=== PATIENT | male | born 1985 | race Caucasian/White ===

== ENCOUNTER 2024-08-10 17:52 | Emergency (ER) | payer OTHER, SELFPAY ==
[2024-08-10 17:52] VITALS: BMI 35.9
[2024-08-10 18:11] VITALS: BP 121/84; PULSE 86; RESP 16; TEMP 37.3; O2SAT 96
--- NOTE | 2024-08-10 18:23 | XR_ITS ---
Examination: Tibia-Fibula, left , 2 views Technique: Tibia-fibula AP lateral 2 views Date and time of exam: 1827 hrs. Indications: Injury to the lower leg 5 days ago, lower leg pain Findings: Orthopedic screws proximal tibia No acute fracture Impression: No acute fracture No cortical bone destruction
--- NOTE | 2024-08-10 18:23 | XR_ITS ---
Examination: Duplex scan of the lower extremity, unilateral left complete Date and time of exam: August 10, 2024 at 1847 hrs. Indications: Left leg pain beginning 5 days ago after falling with injury to the lower leg Technique: Duplex scan of the extremity veins using B-mode/grayscale imaging and Doppler spectral analysis and color flow Attention is directed to internal echogenicity, compression and augmentation involving these veins, color flow assessment, spectral analysis Findings: Positive for acute thrombus, occlusive in the left anterior tibial vein Common femoral superficial femoral-popliteal perineal posterior tibial veins are open Impression: Positive for acute thrombus in the left anterior tibial vein
--- NOTE | 2024-08-10 18:27 | EDNOTE_ITS ---
<Statement entered by Yoli Vuong MD - 08/11/24 21:15> As co-signing physician, I was present and available for consult prn. I concur with the plan and care as documented by the midlevel provider. Lower Extremity Injury RME/HPI General Chief Complaint: Extremity Problem,Nontraumatic Stated Complaint: CRAMPS LEFT CALF X 1 WEEK Time Seen by Provider: 08/10/24 18:23 Arrival date/time: 08/10/24 17:52 38M with no significant PMH presents to ED with LLE cramping/pain after fall 1 week ago, though he states landed on the other extremity. Patient denies SOB. Limitations: no limitations Related Data Previous Rx's ?Medication ?Instructions ?Recorded hydrocodone 5 mg-acetaminophen 325 1 tab PO Q6H PRN pain #7 tabs 02/03/23 mg tablet hydrocodone 5 mg-acetaminophen 325 1 tab PO BID PRN pain #10 tabs 02/05/23 mg tablet meloxicam 7.5 mg tablet 7.5 mg PO QDAY #10 tabs 02/14/23 dexamethasone 6 mg tablet 6 mg PO QDAY #10 tabs 05/10/23 ibuprofen 800 mg tablet 800 mg PO TID PRN pain #30 tabs 05/10/23 hydrocodone 5 mg-acetaminophen 325 1 tab PO BID PRN pain #10 tabs 04/11/24 mg tablet meloxicam 15 mg tablet 15 mg PO QDAY #14 tabs 04/11/24 hydrocodone 5 mg-acetaminophen 325 1 tab PO BID PRN pain #10 tabs 04/21/24 mg tablet apixaban 5 mg (74 tabs) tablets in 5 mg PO BID #74 tabs 08/10/24 a dose pack (Eliquis DVT-PE Treat 30D Start) Allergies Allergy/AdvReac Type Severity Reaction Status Date / Time cyclobenzaprine Allergy Severe Swelling Verified 08/10/24 17:54 morphine Allergy Severe Nausea/Vomi Verified 08/10/24 17:54 tiing Review of Systems Review of Systems Systems Reviewed: All systems reviewed, normal except as documented Constitutional Constitutional: Reports system reviewed and no additional complaints, except as documented, Denies fever(s) and Denies headache(s) ENT Ears, Nose, Mouth, and Throat: Denies disequilibrium and Denies headache(s) Cardiovascular Cardiovascular: Reports system reviewed and no additional complaints, except as documented, Denies chest pain and Denies dyspnea Respiratory Respiratory: Reports system reviewed and no additional complaints, except as documented, Denies cough and Denies dyspnea Gastrointestinal Gastrointestinal: Reports system reviewed and no additional complaints, except as documented, Denies abdominal pain, Denies nausea and Denies vomiting Musculoskeletal Musculoskeletal: Reports as per HPI and Reports arthralgias Neurologic Neurologic: Reports system reviewed and no additional complaints, except as documented, Denies confusion, Denies disequilibrium and Denies headache(s) Psychiatric Psychiatric: Denies confusion Past Medical History Past Medical History NEUROLOGIC: Negative Neurological Disorders CARDIAC: Positive Cardiac Arrhythmia; Negative Cardiac Disorders or Congestive Heart Failure RESPIRATORY: Negative Chronic Obstructive Pulmonary Disease (COPD) GASTROINTESTINAL: Negative Gastrointestinal Disorders GENITOURINARY: Negative Renal Disease MUSCULOSKELETAL: Positive Musculoskeletal Disorders ENDOCRINE: Negative Endocrine Disorders, Diabetes Mellitus Type 1 or Diabetes Mellitus Type 2 PSYCHO/SOCIAL: Positive Depression Surgical History SURGICAL: Positive Abdominal Surgery Social History SMOKING STATUS: Heavy (> 1 pack/day) SUBSTANCE USE: does not use ED Exam General Limitations: Present no limitations General appearance: Present alert and in no apparent distress Head Head exam: Present atraumatic Eye Eye exam: Present normal appearance, PERRL and EOMI ENT ENT exam: Present normal exam, normal oropharynx and mucous membranes moist Neck Neck exam: Present normal inspection, full ROM and trachea midline Chest Chest inspection: Present normal inspection and symmetric chest wall rise Respiratory Respiratory exam: Present normal lung sounds bilaterally Cardiovascular Cardiovascular exam: Present regular rate, normal rhythm and normal heart sounds Abdominal Exam Abdominal exam: Present soft and normal bowel sounds Extremities Exam Extremities exam: Present full ROM Expanded Lower Extremity Exam Lower leg exam: Present full ROM (L) and tenderness Back Exam Back exam: Present normal inspection and full ROM Neurological Exam Neurological exam: Present alert, oriented X3 and CN II-XII intact Psychiatric Psychiatric exam: Present normal affect and normal mood Skin Skin exam: Present warm, dry, intact and normal color Course Quality Measures none Orders Category Date Time Status US venous doppler LE LT Stat Exams 08/10/24 18:23 Completed XR tibia fibula LT 2V Stat Exams 08/10/24 18:23 Completed CBC Stat Lab 08/10/24 19:54 Completed CMP [Comprehensive Metabolic Panel] Stat Lab 08/10/24 19:54 Completed INR [Prothrombin Time with INR] Stat Lab 08/10/24 19:54 Completed PTT [Partial Thromboplastin Time] Stat Lab 08/10/24 19:54 Completed Apixaban [Eliquis] Med 08/10/24 20:42 Discontinued 10 mg PO X1 ONE Vital Signs Vital signs: Vital Signs Temperature 99.1 F 08/10/24 18:11 Pulse Rate 86 08/10/24 18:11 Respiratory Rate 16 08/10/24 18:11 Blood Pressure 121/84 08/10/24 18:11 Pulse Oximetry (%) 96 08/10/24 18:11 Oxygen Delivery Method Room Air 08/10/24 18:11 O2 at 96% on RA and WNLs Extremity Injury, Lower MDM Narrative MDM Narrative:: 38M with no significant PMH presents to ED with LLE cramping/pain after fall 1 week ago, though he states landed on the other extremity. Patient denies SOB. Physical exam reveals mild L lower calf tenderness, but normal but painful ROM. Mild limp with gait. Patient is afebrile, calm, and alert. US reveals +DVT. XR normal. Baseline coags and platelets normal. First dose Eliquis given. Patient data External records reviewed:: [facility] previous records Clinical information provided by:: patient Social determinants that could affect healthcare access:: none Patient has the following chronic illnesses:: none How is presenting disease/condition affected by chronic disease/condition?: no chronic disease Evaluation data The following diagnostics were reviewed and interpreted by me:: radiology exam(s) Lab and/or radiology exams considered but not ordered:: ordered Interpretation Summary: above Medications / Prescriptions Medications or Prescriptions considered but not ordered:: not ordered Medication administrations:: Medication Administration History Discontinued Medications Apixaban (Apixaban 2.5 Mg Tablet) 10 mg PO X1 ONE Stop: 08/10/24 20:43 Last Admin: 08/10/24 20:50 Dose: 10 mg Documented By: n/a Consultations Consultation(s) initiated? (list below): No Diagnosis Extremity Injury, Lower Differential Diagnosis: ankle sprain and strain, acute internal derangement of knee, fracture of femur, fracture of hip, puncture wound of foot, fracture of toe, ankle fracture and other (DVT) Most likely diagnosis given after review of the tests above:: DVT Admission Indicated Admission indicated?: not indicated Admission Request Was there a request for admission?: No Disposition Plan Disposition Plan: Discharge Discharge Attestation Discharge Attestation: The patient and all family members were given an opportunity to ask questions and understood the discharge instructions. Discharge instructions specifically effects, indications for sooner follow up or return to the emergency department, and the expected course of current diagnosis. Patient condition: Stable Discharge Plan Plan Patient Disposition: HOME (Self Care) Disposition Comment: Stable Prescriptions/Referrals Prescriptions/Med Rec: Cheo Lina DVT-PE Treat 30D Start 5 mg (74 tabs) tablets,dose pack 5 mg PO BID Qty: 74 0RF Rx Instructions: 10 mg BID first 7 days, then 5 mg BID afterwards. No Action hydrocodone-acetaminophen 5-325 mg tablet 1 tab PO Q6H MDD 3 PRN (Reason: pain) Qty: 7 0RF meloxicam 15 mg tablet 15 mg PO QDAY Qty: 14 0RF hydrocodone-acetaminophen 5-325 mg tablet 1 tab PO BID MDD 10mg PRN (Reason: pain) Qty: 10 0RF hydrocodone-acetaminophen 5-325 mg tablet 1 tab PO BID MDD 4 PRN (Reason: pain) Qty: 10 0RF meloxicam 7.5 mg tablet 7.5 mg PO QDAY Qty: 10 0RF dexamethasone 6 mg tablet 6 mg PO QDAY Qty: 10 0RF ibuprofen 800 mg tablet 800 mg PO TID PRN (Reason: pain) Qty: 30 0RF hydrocodone-acetaminophen 5-325 mg tablet 1 tab PO BID MDD 10 PRN (Reason: pain) Qty: 10 0RF Referrals: No Primary/Family,Physician [Primary Care Provider] - In 1 week Problem List Clinical Impression: DVT (deep venous thrombosis) Patient/Caregiver Discharge Instructions Education Materials: ED Deep Vein Thrombosis (DVT) Additional Instructions: Please follow-up with PCP within 24-48 hours and return immediately if symptoms worsen. Print Language: Indonesian Stand Alone Forms: Patient Portal Info Letter SOLANGE/ZACHARY Supervising Physician SOLANGE/ZACHARY Supervising Physician: Dr. Vuong
[2024-08-10 20:08] LABS: Basophils # (Auto) 0.1 Thou/mm3 (0.0-0.2); Basophils % (Auto) 1 % (0-2.5); Eosinophils # (Auto) 0.1 Thou/mm3 (0.0-0.5); Eosinophils % (Auto) 1 % (0-10); Hematocrit 49.5 % (41.0-53.0); Hemoglobin 17.1 g/dL (13.5-16.0); Immature Granulocytes % (Auto) 0 % (0-0); Immature Granulocytes Auto 0.02 Thou/mm3 (0.00-0.00); Lymphocytes # (Auto) 2.6 Thou/mm3 (1.0-4.8); Lymphocytes % (Auto) 24 % (10-50); Mean Corpuscular HGB Conc 34.5 g/dl (31.0-37.0); Mean Corpuscular Hemoglobin 30.5 pg (25.0-35.0); Mean Corpuscular Volume 88 fL (80-100); Monocytes # (Auto) 0.7 Thou/mm3 (0.0-0.8); Monocytes % (Auto) 7 % (0-12); Neutrophils # (Auto) 7.4 Thou/mm3 (1.8-7.7); Neutrophils % (Auto) 68 % (37-80); Nucleated Red Blood Cell % 0 /100 WBC (0); Platelet Count 315 Thou/mm3 (140-440); RDW Standard Deviation 41.1 fL (35.1-43.9); White Blood Count 10.9 Thou/mm3 (3.8-10.6)
[2024-08-10 20:25] LABS: Alanine Aminotransferase 47 U/L (10-49); Albumin, Serum 5.3 gm/dL (3.5-5.0); Alkaline Phosphatase 71 U/L (46-116); Anion Gap 4 (7-16); Aspartate Amino Transferase 35 U/L (0-34); BUN/Creatinine Ratio 8 Ratio (12-20); Bilirubin,Total 0.9 mg/dL (0.3-1.2); Blood Urea Nitrogen 10 mg/dL (9-23); Calcium 10.1 mg/dL (8.3-10.6); Calcium (Corrected) 10.1 mg/dL (8.5-10.1); Carbon Dioxide 28.2 mMol/L (20.0-31.0); Chloride 105 mMol/L (98-107); Creatinine (Component) 1.2 mg/dL (0.6-1.3); Estimated Creatinine Clearance 111.7 mL/min (>60); Globulin 2.7 gm/dL (2.3-3.5); Glucose 92 mg/dL (74-106); Osmolality,Calculated 272 (275-295); Potassium 4.7 mMol/L (3.4-5.1); Sodium 137 mMol/L (136-145); eGFR > 60 See Note
[2024-08-10 20:31] LABS: Partial Thromboplastin Time 24.9 Seconds (22.0-36.0); Prothrombin Time 11.3 Seconds (9.0-12.2)
[2024-08-10] MEDS: APIXABAN 2.5 MG TABLET 10 MG PO (20:50)
== END 2024-08-10 20:58 | disposition home or self-care (01) ==
PROVIDERS: Physician Assistant; Emergency Provider Emergency Medicine
DX: I82.442 Acute embolism and thrombosis of left tibial vein (principal); S89.92XA Unspecified injury of left lower leg, initial encounter; W19.XXXA Unspecified fall, initial encounter
CPT/HCPCS: 36415; 73590; 80053; 85025; 85610; 85730; 93971; 99284; A9270

== ENCOUNTER 2024-08-26 23:46 | Inpatient (IN) | payer OTHER, SELFPAY ==
[2024-08-26 23:47] VITALS: BMI 36.1
[2024-08-27] VITALS (16 sets, daily range): BP systolic 114–158; BP diastolic 72–97; PULSE 60–86; RESP 12–98; TEMP 36.2–37.2; O2SAT 95–99; BMI 36.2
--- NOTE | 2024-08-27 00:12 | XR_ITS ---
Examination: CTA chest with intravenous contrast 2-D reconstructions 3-D reconstructions, vascular Date and time of exam: August 27, 2024 0148 hours INDICATIONS: Positive for DVT 2 weeks ago, onset chest pain shortness of breath beginning 3 hours ago CTDI: vol (mGy) 14.9 DLP: (mGycm) 639 Technique: Multiple axial sections of the thorax have been obtained. 3 mm slice thickness, from below the hemidiaphragms to above the apices of the lungs. Mediastinal and lung density settings have been obtained. 2-D sagittal and coronal reconstructions. 3-D angiographic renderings, 3-D volume renderings, 3D post processing, vascular maximum intensity projections obtained. Contrast administered is 100 cc Isovue-370. Low dose protocols were performed. One or more of the following dose reduction techniques were used; automated exposure control, adjustment of the mA and/or KV according to patient size, use of iterative reconstruction technique. Findings: No thoracic aortic aneurysmal dilatation Positive for multiple bilateral lower lobe pulmonary artery emboli in segmental divisions of the right and left pulmonary arteries No mediastinal lymphadenopathy No lobar pneumonia or pulmonary edema or pulmonary infarction No visualized liver or splenic lesion Absent gallbladder No pancreatic mass IMPRESSION: Positive for acute pulmonary artery emboli in bilateral lower lobe pulmonary artery branches
[2024-08-27 00:54] LABS: Basophils # (Auto) 0.1 Thou/mm3 (0.0-0.2); Basophils % (Auto) 1 % (0-2.5); Eosinophils # (Auto) 0.1 Thou/mm3 (0.0-0.5); Eosinophils % (Auto) 2 % (0-10); Hemoglobin 16.6 g/dL (13.5-16.0); Immature Granulocytes % (Auto) 0 % (0-0); Immature Granulocytes Auto 0.01 Thou/mm3 (0.00-0.00); Lymphocytes # (Auto) 2.4 Thou/mm3 (1.0-4.8); Lymphocytes % (Auto) 30 % (10-50); Mean Corpuscular HGB Conc 34.6 g/dl (31.0-37.0); Mean Corpuscular Hemoglobin 30.6 pg (25.0-35.0); Mean Corpuscular Volume 88 fL (80-100); Monocytes # (Auto) 0.8 Thou/mm3 (0.0-0.8); Monocytes % (Auto) 10 % (0-12); Neutrophils # (Auto) 4.8 Thou/mm3 (1.8-7.7); Neutrophils % (Auto) 58 % (37-80); Nucleated Red Blood Cell % 0 /100 WBC (0); Platelet Count 301 Thou/mm3 (140-440); RDW Standard Deviation 40.9 fL (35.1-43.9); Red Blood Count 5.43 Miln/mm3 (4.50-5.90); White Blood Count 8.2 Thou/mm3 (3.8-10.6)
[2024-08-27 01:09] LABS: B-Type Natriuretic Peptide < 20 pg/mL (0-100)
[2024-08-27 01:12] LABS: Alanine Aminotransferase 44 U/L (10-49); Albumin, Serum 4.5 gm/dL (3.5-5.0); Albumin/Globulin Ratio 1.8 (1.2-2.2); Alkaline Phosphatase 64 U/L (46-116); Anion Gap 8 (7-16); Aspartate Amino Transferase 21 U/L (0-34); BUN/Creatinine Ratio 9 Ratio (12-20); Bilirubin,Total 0.4 mg/dL (0.3-1.2); Blood Urea Nitrogen 11 mg/dL (9-23); Calcium 9.8 mg/dL (8.3-10.6); Calcium (Corrected) 9.8 mg/dL (8.5-10.1); Carbon Dioxide 27.8 mMol/L (20.0-31.0); Chloride 106 mMol/L (98-107); Creatinine (Component) 1.2 mg/dL (0.6-1.3); Estimated Creatinine Clearance 111.9 mL/min (>60); Globulin 2.5 gm/dL (2.3-3.5); Glucose 96 mg/dL (74-106); Magnesium 2.1 mg/dL (1.6-2.6); Osmolality,Calculated 282 (275-295); Potassium 3.6 mMol/L (3.4-5.1); Sodium 142 mMol/L (136-145); Troponin I < 0.020 ng/mL (0.0-0.045); eGFR > 60 See Note
--- NOTE | 2024-08-27 03:34 | PRELIM_ITS ---
CT angiogram of the chest with intravenous contrast (axial sections with sagittal and coronal reforma ts) August 27, 2024 0148 hours Clinical History: CP/SOB; has known DVT; r/o PE Technique:Helical ax ial sections with sagittal and coronal reformats of the chest were obtained with intravenous contrast . Iterative reconstruction technique was employed to reduce patient radiation exposure. 3D/MIP recons tructed images were also provided. Comparison: No prior study is available for comparison. Findings:T here are filling defects in the subsegmental divisions of the right lower lobe pulmonary arteries (ax ial images 125,153/256) and subsegmental divisions of the left lower lobe pulmonary arteries (axial i mages 122/256). The mediastinum demonstrates no evidence of mass or lymphadenopathy. The thoracic aor ta is unremarkable. There is no pericardial effusion. The lungs are clear. No evidence of pleural eff usion or pneumothorax.The osseous structures are unremarkable.The visualized upper abdominal viscera are unremarkable.Impression:Acute pulmonary thromboembolism in the in the bilateral pulmonary artery divisions as described.Discussion Details: Results verbally communicated to : Dr. Kevin at 03:30 AM Report Electronically Signed By: India Gilbert 08/27/2024 3:34:17 AM [EST]
--- NOTE | 2024-08-27 03:35 | PD.EDCHEST ---
ED Chest Pain RME/HPI General Chief Complaint: Chest Pain Stated Complaint: CHEST PAIN Time Seen by Provider: 08/27/24 00:12 Arrival date/time: 08/26/24 23:46 38M with history of recent DVT diagnosis (on Eliquis) presents to ED with 1 day of CP and SOB. Limitations: no limitations Related Data Previous Rx's ?Medication ?Instructions ?Recorded hydrocodone 5 mg-acetaminophen 325 1 tab PO Q6H PRN pain #7 tabs 02/03/23 mg tablet hydrocodone 5 mg-acetaminophen 325 1 tab PO BID PRN pain #10 tabs 02/05/23 mg tablet meloxicam 7.5 mg tablet 7.5 mg PO QDAY #10 tabs 02/14/23 dexamethasone 6 mg tablet 6 mg PO QDAY #10 tabs 05/10/23 ibuprofen 800 mg tablet 800 mg PO TID PRN pain #30 tabs 05/10/23 hydrocodone 5 mg-acetaminophen 325 1 tab PO BID PRN pain #10 tabs 04/11/24 mg tablet meloxicam 15 mg tablet 15 mg PO QDAY #14 tabs 04/11/24 hydrocodone 5 mg-acetaminophen 325 1 tab PO BID PRN pain #10 tabs 04/21/24 mg tablet apixaban 5 mg (74 tabs) tablets in 5 mg PO BID #74 tabs 08/10/24 a dose pack (Eliquis DVT-PE Treat 30D Start) Allergies Allergy/AdvReac Type Severity Reaction Status Date / Time cyclobenzaprine Allergy Severe Swelling Verified 08/10/24 17:54 morphine Allergy Severe Nausea/Vomi Verified 08/10/24 17:54 tiing Review of Systems Review of Systems Systems Reviewed: All systems reviewed, normal except as documented Constitutional Constitutional: Reports system reviewed and no additional complaints, except as documented, Denies fever(s) and Denies headache(s) ENT Ears, Nose, Mouth, and Throat: Denies disequilibrium and Denies headache(s) Cardiovascular Cardiovascular: Reports system reviewed and no additional complaints, except as documented, Reports as per HPI, Reports chest pain and Reports dyspnea Respiratory Respiratory: Reports system reviewed and no additional complaints, except as documented, Denies cough and Reports dyspnea Gastrointestinal Gastrointestinal: Reports system reviewed and no additional complaints, except as documented, Denies abdominal pain, Denies nausea and Denies vomiting Neurologic Neurologic: Reports system reviewed and no additional complaints, except as documented, Denies confusion, Denies disequilibrium and Denies headache(s) Psychiatric Psychiatric: Denies confusion Past Medical History Past Medical History NEUROLOGIC: Negative Neurological Disorders CARDIAC: Positive Cardiac Arrhythmia; Negative Cardiac Disorders or Congestive Heart Failure RESPIRATORY: Negative Chronic Obstructive Pulmonary Disease (COPD) or Asthma GASTROINTESTINAL: Negative Gastrointestinal Disorders GENITOURINARY: Negative Renal Disease MUSCULOSKELETAL: Positive Musculoskeletal Disorders ENDOCRINE: Negative Endocrine Disorders, Diabetes Mellitus Type 1 or Diabetes Mellitus Type 2 HEMATOLOGIC: Negative Sickle Cell Disease PSYCHO/SOCIAL: Positive Depression Surgical History SURGICAL: Positive Abdominal Surgery Social History SMOKING STATUS: Current every day smoker SUBSTANCE USE: does not use ED Exam General Limitations: Present no limitations General appearance: Present alert and in no apparent distress Head Head exam: Present atraumatic Eye Eye exam: Present normal appearance, PERRL and EOMI ENT ENT exam: Present normal exam, normal oropharynx and mucous membranes moist Neck Neck exam: Present normal inspection, full ROM and trachea midline Chest Chest inspection: Present normal inspection and symmetric chest wall rise Respiratory Respiratory exam: Present normal lung sounds bilaterally Cardiovascular Cardiovascular exam: Present regular rate, normal rhythm and normal heart sounds Abdominal Exam Abdominal exam: Present soft and normal bowel sounds Extremities Exam Extremities exam: Present normal inspection and full ROM Back Exam Back exam: Present normal inspection and full ROM Neurological Exam Neurological exam: Present alert, oriented X3 and CN II-XII intact Psychiatric Psychiatric exam: Present normal affect and normal mood Skin Skin exam: Present warm, dry, intact and normal color Course Quality Measures none Orders Category Date Time Status Admit to Inpatient Status Routine Admission 08/27/24 04:21 Active Patient Condition Routine Admission 08/27/24 04:21 Ordered COVID-19 Screening Questionnaire NOW Care 08/27/24 03:[address] Screening NOW Care 08/27/24 00:13 Active Decision to Admit X1 Care 08/27/24 03:41 Completed EKG (ED ONLY) *Do not use* NOW Care 08/26/24 23:48 Completed EKG (ED ONLY) *Do not use* NOW Care 08/27/24 04:16 Completed Insert IV NOW Care 08/27/24 00:13 Active Notify provider NEEDED Care 08/27/24 04:21 Active Notify provider NOW Care 08/27/24 04:[address] angio chest Stat Exams 08/27/24 00:12 Taken EKG (ED Only) Stat Exams 08/26/24 23:48 Ordered EKG (ED Only) Stat Exams 08/27/24 04:16 Draft B-Type Natriuretic Peptide Stat Lab 08/27/24 00:43 Completed CBC Stat Lab 08/27/24 00:43 Completed Comprehensive Metabolic Panel Stat Lab 08/27/24 00:43 Completed Magnesium Stat Lab 08/27/24 00:43 Completed Partial Thromboplastin Time Stat Lab 08/27/24 00:43 Completed Prothrombin Time with INR Stat Lab 08/27/24 00:43 Completed Troponin I Stat Lab 08/27/24 00:43 Completed Troponin I Stat Lab 08/27/24 03:20 Completed Code Status Routine Oth 08/27/24 04:20 Ordered Vital Signs Vital signs: Vital Signs Temperature 99 F 08/27/24 00:01 Pulse Rate 67 08/27/24 00:01 Respiratory Rate 18 08/27/24 00:01 Blood Pressure 144/92 H 08/27/24 00:01 Pulse Oximetry (%) 99 08/27/24 00:01 Oxygen Delivery Method Room Air 08/27/24 00:01 O2 at 99% on RA and WNLs Chest Pain MDM Narrative MDM Narrative:: 38M with history of recent DVT diagnosis (on Eliquis) presents to ED with 1 day of CP and SOB. Physical exam reveals clear ENT and lungs. RRR. Patient is afebrile, calm, and alert. CT reveals bilateral PEs. Coags normal. No leukocytosis. CMP unremarkable. EKG is NSR. Initial trop normal. Spoke to Dr. Bobby, IM resident, who agrees to admit the patient after consultation with attending Dr. Gross. Patient data External records reviewed:: [facility] previous records Clinical information provided by:: patient Social determinants that could affect healthcare access:: none Patient has the following chronic illnesses:: DVT How is presenting disease/condition affected by chronic disease/condition?: caused by Evaluation data The following diagnostics were reviewed and interpreted by me:: lab results, radiology exam(s) and EKG tracing(s) Lab and/or radiology exams considered but not ordered:: ordered Interpretation Summary: above Medications / Prescriptions Medications or Prescriptions considered but not ordered:: ordered Medication administrations:: Medication Administration History Acetaminophen (Acetaminophen 325 Mg Tablet) 650 mg PO Q6H PRN PRN Reason: Pain 1-3 or Fever >100.3 Stop: 09/26/24 04:21 Heparin Sodium/Dextrose (Heparin In D5w Ivpb) 25,000 unit in 250 mls @ 21.8 mls/hr IV .[id number] [facility]; Protocol Stop: 09/10/24 04:29 Ondansetron HCl (Ondansetron Inj 2 Mg/Ml Inj 2 Ml) 4 mg IV Q6H PRN; Protocol PRN Reason: NAUSEA OR VOMITING Stop: 09/26/24 04:21 Discontinued Medications Heparin Sodium (Porcine) (Heparin Sod Inj 5000 Unit/Ml Vial) 8,000 unit IV X1 ONE; Protocol Stop: 08/27/24 04:23 above Consultations Consultation(s) initiated? (list below): Yes Diagnosis Chest Pain Differential Diagnosis: fracture of rib, pneumothorax, stable angina, unstable angina pectoris, atypical chest pain, st elevation myocardial infarction, costochondritis, biliary colic and other (PE) Most likely diagnosis given after review of the tests above:: PE Admission Indicated Admission indicated?: indicated Admission Request Was there a request for admission?: Yes Admission Attestation Admission request attestation: Discussed case with [Dr. Bobby] from Hospitalist service regarding admission. Discussed patients ED course, exam findings, labs, and radiology results. The Hospitalist [agrees] to accept the patient for admission. Disposition Plan Disposition Plan: Admit Discharge Plan Plan Patient Disposition: Admit Acute Care w/in Hospital Problem List Clinical Impression: Pulmonary embolism
[2024-08-27 03:49] LABS: Troponin I < 0.020 ng/mL (0.0-0.045)
--- NOTE | 2024-08-27 04:16 | EKG_ITS ---
[facility] Test Date: 2024-08-27 Pat Name: KAREN ALVES Department: Room: - Gender: Male Mental Health Associate: : 1985 Requested By: Viv Bobby Order Number: [id number] Reading MD: Viv Bobby Measurements Intervals [place] Rate: 62 P: 41 MI: 169 QRS: 81 QRSD: 101 T: 12 QT: 363 QTc: 371 Interpretive Statements SINUS RHYTHM NONSPECIFIC T-WAVE ABNORMALITY No previous ECG available for comparison /store/S0/[id number]
--- NOTE | 2024-08-27 04:24 | ECHO_ITS ---
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 16 - 28 cm?/m? Ascending Aorta Diameter 3.1 cm M-MODE Aortic Root Diameter MM 3.0 cm LA Systolic Diameter MM 3.7 cm LA Ao Ratio MM 1.2 AV Cusp Separation MM 2.4 cm DOPPLER AV Peak Velocity 109.0 cm/s AV Peak Gradient 4.8 mmHg AV Mean Gradient 3.0 mmHg AV Velocity Time Integral 23.2 cm LVOT Peak Velocity 97.5 cm/s LVOT Peak Gradient 3.8 mmHg LVOT Velocity Time Integral 19.4 cm LVOT Cardiac Index 1932.0 cm?/min?m? AV Area Cont Eq vti 2.6 cm? AV Area Cont Eq pk 2.8 cm? MV Peak Velocity 78.9 cm/s MV Peak Gradient 2.5 mmHg MV Mean Velocity 51.5 cm/s MV Mean Gradient 1.0 mmHg MV Area PHT 4.2 cm? Mitral E Point Velocity 73.7 cm/s Mitral A Point Velocity 71.3 cm/s Mitral E to A Ratio 1.0 LV E' Lateral Velocity 13.6 cm/s Mitral E to LV E' Lateral Ratio 5.4 LV E' Septal Velocity 8.3 cm/s Mitral E to LV E' Septal Ratio 8.9 FINDINGS Left Ventricle Normal left ventricular size, wall thickness, systolic function with no obvious regional wall motion abnormalities. The ejection fraction is visually estimated at 55-60%. Right Ventricle The right ventricle is normal in size and systolic function. Left Atrium The left atrium is normal by two-dimensional, color flow and Doppler imaging with no structural abnormalities, no thrombus formation present. Right Atrium The right atrium is normal by two-dimensional imaging, color flow and Doppler imaging with no struct ural abnormalities, no thrombus formation present. Atrial Septum The interatrial septum appears normal with no evidence of a shunt. Aorta The aorta is normal by two-dimensional, color flow and Doppler interrogation. Mitral Valve The mitral valve is normal by two-dimensional, color flow and Doppler interrogation. There is no sig nificant mitral valve regurgitation. Aortic Valve The aortic valve is trileaflet and normal by two-dimensional, color flow and Doppler interrogation. There is no significant aortic valve regurgitation. Tricuspid Valve The tricuspid valve is normal by two-dimensional, color flow and Doppler interrogation. There is tra ce tricuspid valve regurgitation. Pulmonic Valve There is no significant pulmonic valve regurgitation. Vessels The pulmonary artery appears normal. The inferior vena cava pulmonary and hepatic veins appear javier l. Pericardium The pericardium is normal by two-dimensional imaging. There is no significant pericardial effusion. CONCLUSIONS The transthoracic study is normal by two-dimensional, color flow imaging and Doppler interrogation. Normal LV size and function. Estimated EF 55-60% Normal RV size and function. Trace TR. Jacqui Donaldson (Electronically Signed) Final Date: 27 August 2024 16:31
--- NOTE | 2024-08-27 04:39 | ESHP_ITS ---
<Statement entered by Rodrigo Gross MD - 08/27/24 08:46> I Rodrigo Gross MD reviewed the note and agree with the resident's assessment & plan with exceptions as below. I have personally reviewed labs, imaging, home meds/prior records, examined the patient, formulated and discussed management plan with the IM team. Admit for IV heparin for 48 hrs and hypercoagulable workup as pt had PE on eliquis. Consider changing to Xeralto on discharge, COnsult hematology, obtain TTE to evaluate for RV strain. Documentation for date of: 08/27/24 HPI History of Present Illness History of present illness: The patient is a 38-year-old male with no significant past medical history presenting to the ED on 08/27/2024 with chest pain. He was in his usual state of health until about 11 PM when he started to have pain in the left side of his chest, about 8/10 in severity, radiating to the back, with some shortness of breath but no associated cough, palpitations. He had recently come to the ED on the , about 3 weeks ago with left leg pain and mild swelling in the ED was found to have acute thrombus in the left anterior tibial, he was subsequently discharged on Eliquis 10 mg twice daily to be taken for 7 days and then 5 mg twice daily until he followed up with his primary care provider, patient is still currently on Eliquis. He has no previous history of DVTs or PEs, no history of cancer, no history of heart or lung disease, no history of coagulopathy and no family history of the same. He states that he has been living a decently active lifestyle, has not been sedentary or immobilized, had a surgery done about 4 months ago for biceps tendon rupture but otherwise has been healthy. ED course: In the ED, patient was afebrile, not tachycardic or tachypneic and saturating 96% on room air. CBC was unremarkable as well as CMP, troponins are negative. Chest CTA was done which revealed acute pulmonary thromboembolism in the bilateral pulmonary artery divisions. The patient is being admitted for management of acute bilateral PE. PMHx-nil PSHx-biceps tendon repair Social history-quit smoking about 7 years ago, now smokes only occasionally, no alcohol or illicit drugs Home meds-Eliquis 5 mg twice daily Review of Systems Review of Systems Narrative Review of Systems: GENERAL: Denies fevers/chills or diaphoresis. HEENT: Denies headache or visual/hearing changes. Denies nasal discharge. NEURO: Denies unusual weakness or difficulty speaking. CARDIO: Admits chest pain and shortness of breath but no palpitations. PULM: Denies SOB, coughing, or wheezing. GI: Denies abdominal pain, N/V/C/D/reflux/gas, bright red blood per rectum or melena. Reports having BMs. URO: Denies burning/itching/pain/urinary changes. MSK/EXT/SKIN: Denies joint/skeletal/muscle pain, issues/changes in upper or lower extremities, itchiness, or superficial pain. PSYCH: Cooperative, pleasant mood & affect. Exam Vital Signs Temp Pulse Resp BP Pulse Ox O2 Del Method 98.5 F 70 18 135/80 H 95 Room Air 08/27/24 04:26 08/27/24 04:26 08/27/24 04:26 08/27/24 04:26 08/27/24 04:26 08/27/24 04:26 Narrative Exam GENERAL: AAOX3 NEURO: [employer] grossly intact, moves extremities x4 HEENT: Moist mucosa. Eyes open, symmetrical, & clear CARDIO: No chest pain on palpation. Heart RRR, no obvious murmurs PULM: No noted coughing/dyspnea. Lungs CTA B/L GI: Abdomen soft, nondistended, no pain on palpation. BSx4 URO/SIDE BOSS:: No further abnormalities noted. SKIN/MSK/EXT: No wounds/rashes/edema/amputations, no pain on palpation. Pedal pulses present B/L Results: Labs 08/27/24 00:43 08/27/24 00:43 Labs: Short CBC 08/27/24 Range/Units 00:43 WBC 8.2 (3.8-10.6) Thou/mm3 Hgb 16.6 H (13.5-16.0) g/dL Hct 48.0 (41.0-53.0) % Plt Count 301 (140-440) Thou/mm3 BMP 08/27/24 00:43 Sodium 142 Potassium 3.6 Chloride 106 Carbon Dioxide 27.8 BUN 11 Creatinine 1.2 Glucose 96 Calcium 9.8 Cardiac Enzymes 08/27/24 08/27/24 Range/Units 00:43 03:20 Troponin I < 0.020 < 0.020 (0.0-0.045) ng/mL Liver Function 08/27/24 Range/Units 00:43 Total Bilirubin 0.4 (0.3-1.2) mg/dL AST 21 (0-34) U/L ALT 44 (10-49) U/L Alkaline Phosphatase 64 (46-116) U/L Albumin 4.5 (3.5-5.0) gm/dL Quality Measures Quality Measures none Medications Home Medications and Allergies Allergies Allergy/AdvReac Type Severity Reaction Status Date / Time cyclobenzaprine Allergy Severe Swelling Verified 08/10/24 17:54 morphine Allergy Severe Nausea/Vomi Verified 08/10/24 17:54 tiing Visit Medications Acetaminophen (Acetaminophen 325 Mg Tablet) 650 mg PO Q6H PRN PRN Reason: Pain 1-3 or Fever >100.3 Stop: 09/26/24 04:21 Heparin Sodium/Dextrose (Heparin In D5w Ivpb) 25,000 unit in 250 mls @ 21.8 mls/hr IV .[id number] LEXA; Protocol Stop: 09/10/24 04:29 Ondansetron HCl (Ondansetron Inj 2 Mg/Ml Inj 2 Ml) 4 mg IV Q6H PRN; Protocol PRN Reason: NAUSEA OR VOMITING Stop: 09/26/24 04:21 Discontinued Medications Heparin Sodium (Porcine) (Heparin Sod Inj 5000 Unit/Ml Vial) 8,000 unit IV X1 ONE; Protocol Stop: 08/27/24 04:23 Assessment & Plan Assessment Summary: The patient is a 38-year-old male with no significant past medical history presenting to the ED on 08/27/[address] reveals acute pulmonary thromboembolism in the bilateral pulmonary divisions. #Acute bilateral pulmonary embolism #Unprovoked versus provoked #History of DVT Patient presented with an 8/10 chest pain, radiating to the back associated with some shortness of breath, no associated cough, palpitations. About 3 weeks ago he had left leg cramps to the ED when he was found to have acute thrombus in the left anterior tibial vein. No CT was done at the time of the patient was discharged on Eliquis 10 mg twice daily for a week and then 5 mg twice daily which she is still currently taking. No risk factors for DVT/PE. CBC unremarkable as well as CMP, negative troponins. EKG showed sinus rhythm with no ST-T wave abnormalities. Chest CTA showed acute pulmonary embolism in the bilateral pulmonary artery divisions. Plan: -Admit to telemetry -IV heparin bolus and then 18 units/kg/h -Echocardiogram -Complete hypercoagulable workup Health maintenance: Dispo: Tele Diet: Cardiac DVT: Heparin drip Law: None Lines: Peripheral PT: Not ordered Code: Full Case was discussed with attending physician, Dr Renato Bobby MD PGY-1
[2024-08-27] MEDS: HEPARIN SOD INJ 5000 UNIT/ML VIAL 8000 UNIT IV (04:53)
[2024-08-27] MEDS: Heparin/D5w 25K 250 ML Ivpb 25,000 UNIT/250 ML BAG 17.999 UNIT IV ×2 (04:54→19:38)
[2024-08-27 07:02] LABS: Alanine Aminotransferase 44 U/L (10-49); Albumin, Serum 4.6 gm/dL (3.5-5.0); Albumin/Globulin Ratio 1.9 (1.2-2.2); Alkaline Phosphatase 60 U/L (46-116); Anion Gap 9 (7-16); Aspartate Amino Transferase 20 U/L (0-34); BUN/Creatinine Ratio 9 Ratio (12-20); Bilirubin,Total 0.4 mg/dL (0.3-1.2); Blood Urea Nitrogen 11 mg/dL (9-23); Calcium 9.6 mg/dL (8.3-10.6); Calcium (Corrected) 9.6 mg/dL (8.5-10.1); Carbon Dioxide 26.5 mMol/L (20.0-31.0); Cardiac Risk Estimate 4.9 RATIO (4.0-6.7); Chloride 105 mMol/L (98-107); Cholesterol 185 mg/dL (132-200); Creatinine (Component) 1.2 mg/dL (0.6-1.3); Estimated Creatinine Clearance 112.2 mL/min (>60); Globulin 2.4 gm/dL (2.3-3.5); Glucose 109 mg/dL (74-106); HDL Cholesterol 38 mg/dL (40-60); LDL Cholesterol,Calculated 133 mg/dL (0-130); Magnesium 2.2 mg/dL (1.6-2.6); Osmolality,Calculated 279 (275-295); Potassium 4.1 mMol/L (3.4-5.1); Sodium 140 mMol/L (136-145); Triglycerides 70 mg/dL (30-150); eGFR > 60 See Note
[2024-08-27 07:29] LABS: Basophils # (Auto) 0.1 Thou/mm3 (0.0-0.2); Basophils % (Auto) 1 % (0-2.5); Eosinophils # (Auto) 0.2 Thou/mm3 (0.0-0.5); Eosinophils % (Auto) 2 % (0-10); Hematocrit 47.8 % (41.0-53.0); Hemoglobin 16.3 g/dL (13.5-16.0); Immature Granulocytes % (Auto) 0 % (0-0); Immature Granulocytes Auto 0.01 Thou/mm3 (0.00-0.00); Lymphocytes % (Auto) 25 % (10-50); Mean Corpuscular HGB Conc 34.1 g/dl (31.0-37.0); Mean Corpuscular Hemoglobin 30.7 pg (25.0-35.0); Mean Corpuscular Volume 90 fL (80-100); Monocytes # (Auto) 0.7 Thou/mm3 (0.0-0.8); Monocytes % (Auto) 8 % (0-12); Neutrophils # (Auto) 5.2 Thou/mm3 (1.8-7.7); Neutrophils % (Auto) 64 % (37-80); Nucleated Red Blood Cell % 0 /100 WBC (0); Platelet Count 320 Thou/mm3 (140-440); Red Blood Count 5.31 Miln/mm3 (4.50-5.90); White Blood Count 8.1 Thou/mm3 (3.8-10.6)
--- NOTE | 2024-08-27 09:10 | PC.NURSE ---
Patient is alert and oriented, ambulatory without assist. Patient laying in gurney, denies any complaints/pain at this time. Patient updated with plan of care.
--- NOTE | 2024-08-27 09:29 | PC.NURSE ---
RN reported to Claudia Quick, patient will transfer to room 275.
--- NOTE | 2024-08-27 09:39 | ESPR_ITS ---
<Statement entered by Justice Rosario MD - 08/27/24 15:29> This patient is a 38-year-old male with past medical history of hypertension presented with bilateral PE. Prior to that, 2 weeks ago patient had a ground- level fall and was investigated for left lower extremity swelling and pain and was found to have DVT. Was started on Eliquis starter pack for DVT treatment. Chest CT was significant for PE present bilateral there for patient started on heparin drip by night team. Hypercoagulation workup was ordered. We consulted cardio for further evaluation. Patient's hemoglobin is around 16.3. Kidney functions showed BUN 11 and creatinine 1.2. Will likely discharge the patient on Xarelto starter pack. Pending echocardiogram and cardio recommendations. All labs and orders were reviewed. I saw and examined the patient, and I agree with current management stated by Dr Joana MD,PGY1. Plan of care was discussed with the attending physician and resident physician. Disclaimer: Despite multiple revisions, due to the dictation software being used, the document bellow may not be free of grammatical errors including phonetic/typographic errors. However, this does not deter from our commitment to providing health care in the patient's best interest in mind. Dr. Marlene MD, PGY 2 Documentation for date of: 08/27/24 Subjective Subjective Interval history: Patient was seen and examined at bedside this AM. No acute exents overnight. Patient tolerating diet, adequate urine output and mentation is at baseline. Patient endorses improvement of Chest pain. Not much change with respiration It started around 11pm last night and described as sharp, left sided, radiated behind scapula, worse on leaning forward . Initially constant for 2 hours. 9/10 intially now 6/10 and intermittent Chest CTA completed on 08/27/2024 findings include: Positive for multiple bilateral lower lobe pulmonary artery emboli and segmental divisions of the right and left pulmonary arteries. Exam Vital Signs Temp Pulse Resp BP Pulse Ox O2 Del Method 97.8 F 86 18 158/94 H 99 Room Air 08/27/24 08:00 08/27/24 08:00 08/27/24 08:00 08/27/24 08:00 08/27/24 08:00 08/27/24 08:00 Narrative Exam Constitutional Alert, oriented x 3 and comfortable. Young, obese male HEENT Vision grossly intact. Patent nares. Trachea midline Respiratory Chest normal on inspection and clear auscultation bilaterally Cardiovascular S1 and S2 audible, RRR. No murmurs carotid bruit. No gross JVD. Abdominal Soft, obese and non tender to palpation in all quadrants. BS + Genitourinary No bladder tenderness, no flank pain. Normal to palpation Musculoskeletal Extremities tone within normal limits. Left calf appears bigger than right Neurological CN II - XII grossly intact. Extremity motor and sensation grossly intact. Skin Warm, dry and intact. No apparent lesions. Psychiatric Patient has good affect, is cooperative Objective Labs 08/28/24 05:14 08/28/24 05:14 Labs: Laboratory Results - last 24 hr 08/27/24 08/27/24 08/27/24 00:43 03:20 05:46 WBC 8.2 8.1 RBC 5.43 5.31 Hgb 16.6 H 16.3 H Hct 48.0 47.8 MCV 88 90 MCH 30.6 30.7 MCHC 34.6 34.1 RDW Std Deviation 40.9 42.0 Plt Count 301 320 Neut % (Auto) 58 64 Lymph % (Auto) 30 25 [place] % (Auto) 10 8 Eos % (Auto) 2 2 Baso % (Auto) 1 1 Neut # (Auto) 4.8 5.2 Lymph # (Auto) 2.4 2.0 [place] # (Auto) 0.8 0.7 Eos # (Auto) 0.1 0.2 Baso # (Auto) 0.1 0.1 Immature Gran # (Auto) 0.01 H 0.01 H Absolute Nucleated RBC 0.00 0.00 Immature Gran % 0 0 Nucleated RBC % 0 0 PT 11.0 INR 1.0 APTT 25.0 Sodium 142 140 Potassium 3.6 4.1 D Chloride 106 105 Carbon Dioxide 27.8 26.5 Anion Gap 8 9 BUN 11 11 Creatinine 1.2 1.2 Estim Creat Clear Calc 111.9 112.2 eGFR > 60 > 60 BUN/Creatinine Ratio 9 L 9 L Glucose 96 109 H Calculated Osmolality 282 279 Calcium 9.8 9.6 Corrected Calcium 9.8 9.6 Magnesium 2.1 2.2 Total Bilirubin 0.4 0.4 AST 21 20 ALT 44 44 Alkaline Phosphatase 64 60 Troponin I < 0.020 < 0.020 B-Natriuretic Peptide < 20 Total Protein 7.0 7.0 Albumin 4.5 4.6 Globulin 2.5 2.4 Albumin/Globulin Ratio 1.8 1.9 Triglycerides 70 Cholesterol 185 LDL Cholesterol, Calc 133 H HDL Cholesterol 38 L Cholesterol/HDL Ratio 4.9 Quality Measures Quality Measures none Assessment & Plan Assessment Current Active Medications: Generic Name Dose Route Start Last Admin Trade Name Freq PRN Reason Stop Dose Admin Acetaminophen 650 mg 08/27/24 04:22 Acetaminophen 325 Mg Tablet PO 09/26/24 04:21 Q6H PRN Pain 1-3 or Fever >100.3 Heparin Sodium/Dextrose 25,000 unit in 250 mls @ 17.999 mls/hr 08/27/24 04:30 08/27/24 07:12 Heparin In D5w Ivpb IV 09/10/24 04:29 14.862 units/kg/hr .[id number] LEXA 17.999 mls/hr Titration Protocol 14.862 UNITS/KG/HR Ondansetron HCl 4 mg 08/27/24 04:22 Ondansetron Inj 2 Mg/Ml Inj 2 Ml IV 09/26/24 04:21 Q6H PRN NAUSEA OR VOMITING Protocol Plan Patient is a 38-year-old male with a past medical history significant for left lower limb DVT, right bicep tear s/p repair and left patella fracture s/p repair. Presented to the ED with a chief complaint of chest pain and admitted for treatment and management of acute bilateral pulmonary emboli. 1. Chest pain?resolving 2. Acute bilateral subsegmental pulmonary pulmonary embolism 3. 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 Initially constant for 2 hours. 9/10 intially now 6/10 and intermittent. Patient's previously worked at [employer] 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 Would stand for 4-5 hours per shift and have to drive short distances as well. Bilateral lower extremity venous Doppler completed on 08/10/2024 findings include: Positive for acute thrombus, occlusive in the left anterior tibial vein Common femoral superficial femoral-popliteal perineal posterior tibial veins are open Chest CTA completed on 08/27/2024 findings include: Positive for multiple bilateral lower lobe pulmonary artery emboli and segmental divisions of the right and left pulmonary arteries. Plan: ? Continue heparin infusion for pulmonary embolism and DVT - Pending hypercoaguable workup for unprovoked DVT including antiphospholipid antibodies, Antithrombin III, anticardiolipin antibodies, homocystine, lupus anticoagulant, protein C&S and factor V Leiden. ? Pending trans thoracic echocardiogram for assessment of right heart strain. ? Will switch patient to Xarelto on discharge as he developed Pulmonary embolism while on treatment with Eliquis for DVT. - Cardiology Dr. Romero He consulted and is closely following the case. Appreciate recommendations. 4. Nicotine Dependence Patient has approximately 5-10 pack year smoking history. From [id number] Currently vapes nicotine. 5. Class 2 Obesity Patient's BMI is 36.2 He has a mostly sedentary lifestyle Health maintenance: Disposition: Heparin infusion for PE and DVT. Cardiology consult Diet: Cardiac Lines: pIVs GI Prophylaxis: None Thrombo Prophylaxis: On heparin infusion for PE and DVT Code status: FULL CODE Plan of care discussed with Attending Dr. Mathews and PGY2 Dr. Marlene Bernard MD PGY 1 Attending Provider Attestation/Addendum Jyoti, Li Mathews, , attest that I was physically present for the cabral portions of the service and evaluated the patient with the resident and I reviewed and discussed the case with the resident and agree with the resident's findings and plans of care as documented above Patient seen and eval this a.m. Patient currently on a heparin drip and states that he has been compliant with however, he has been having persistent chest pain despite being on Eliquis. Patient states that his shortness of breath and chest pain has slightly improved at this time. Echo pending. Anticipate discharge within the next 24 hours if patient condition continues to be stable. Considering switching to Xarelto given BMI of 36.1.
--- NOTE | 2024-08-27 10:51 | PC.SS ---
SS follow up note; Patient is on heparin drip. Pending Echo and Cardio rec's.
--- NOTE | 2024-08-27 11:54 | PC.SS ---
Patient Nitesh Recio is a 38 Year old male admitted for Bilateral PE. SS met with patient at bedside to discuss discharge plan. Patient reports he lives at home alone. Patient's surrogate decision maker is his mother, Agustina Dowling [phone]. Patient does not utilize any source of DME to assist with ambulation. Patients choice of pharmacy is [facility]. At time of discharge patient will discharge home. Next of Kin, Mother, Agustina Dowling [phone] Discharge Plan: Home PCP; [facility]
[2024-08-27 12:33] LABS: Partial Thromboplastin Time 54.2 Seconds (22.0-36.0)
[2024-08-27 19:02] LABS: Partial Thromboplastin Time 52.4 Seconds (22.0-36.0)
--- NOTE | 2024-08-27 19:04 | ESCONSULT_ITS ---
<Statement entered by Akin He MD - 08/28/24 10:30> I personally evaluate this patient who has history of DVT recently diagnosed on anticoagulation came to the office atypical sharp left-sided chest pain appears to be noncardiac in nature pleuritic in nature. Patient does have some evidence of subsegmental pulmonary emboli I reviewed the CT scan myself not very impressed clinically patient does not have significant shortness of breath or other issues patient is already on anticoagulation Eliquis initial loading dose was already given now on 5 mg twice daily dosing. Send the patient is clinically not having much shortness of breath or symptoms given the CT scan findings are very minimal patient does not require prolonged IV heparin and patient symptoms are noncardiac in nature. 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 No need for further workup at this time reviewed the consultation all essential complaints of the note agree with the treatment plan recommendation as formulated by Dr. Carias PGY2 HPI Data of Consult Requesting Physician: Li Mathews DO Admitting Provider: Rodrigo Gross MD Attending Provider: Li Mathews DO Primary Care Provider: Donny Gardner MD Consult Narrative History of present illness: 38-year-old male patient with no significant past medical history presented to ED with symptoms of localized chest pain radiating to the back of the scapula. Symptoms started the night prior to admission, located on left side of the chest with intensity of 8 out of 10 with associate symptoms of some shortness of breath. Patient denied cough, chills, fever, palpitations, abdominal pain or other associate symptoms. Patient was seen at [facility] ED on 08/10/2024 for left leg pain at which time he was found to have a DVT at anterior tibial and was discharged on Eliquis. Patient states that he was compliant with his medication. Patient denies family history of cancer or coagulopathies. He is an [employer] and currently not working but states that he has pretty active lifestyle. In ED vitals were within normal limits with saturations of 96% on room air. CBC and CMP were unremarkable, chest CTA revealed acute pulmonary thromboembolism in the bilateral pulmonary artery divisions. Patient was started on heparin drip and admitted for PE workup. Cardiology was consulted for further management. Medical Hx: None Medications: Eliquis 5 mg Surgical Hx: Bicep tendon repair Social Hx: Heavy smoker until 7 years ago now smokes occasionally, denies drinking alcohol or using other illicit drugs, lives with and children Allergies: Morphine = nausea no vomiting, cyclobenzaprine = swelling CODE STATUS: Full code 08/27/24: Patient seen and examined at bedside, breathing comfortably on room air, denies chest pain/pressure, shortness of breath or other associate symptoms. Imaging and labs reviewed, echocardiogram shows normal left ventricle size and EF function. There are no signs of right ventricle hypertrophy or stress. Given patient's symptoms, labs, echocardiogram and chest CTA, patient has a non-massive grading PE. Patient's chest pain description does not seem to be related to the heart or PE. Per patient he has seen 4 different low pressure boiler operator and has undergone several cardiac tests with all concluding no abnormalities. Patient can be discharged home on Eliquis 5 mg BID. cc:: cc: Li Mathews DO Review of Systems Review of Systems Systems Reviewed: All systems reviewed, normal except as documented Exam Vital Signs Temp Pulse Resp BP Pulse Ox O2 Del Method 97.1 F 78 18 142/97 H 96 Room Air 08/27/24 16:00 08/27/24 16:00 08/27/24 16:00 08/27/24 16:00 08/27/24 16:00 08/27/24 16:00 Results Labs 08/27/24 05:46 08/27/24 05:46 Labs: Short CBC 08/27/24 08/27/24 Range/Units 00:43 05:46 WBC 8.2 8.1 (3.8-10.6) Thou/mm3 Hgb 16.6 H 16.3 H (13.5-16.0) g/dL Hct 48.0 47.8 (41.0-53.0) % Plt Count 301 320 (140-440) Thou/mm3 BMP 08/27/24 08/27/24 00:43 05:46 Sodium 142 140 Potassium 3.6 4.1 D Chloride 106 105 Carbon Dioxide 27.8 26.5 BUN 11 11 Creatinine 1.2 1.2 Glucose 96 109 H Calcium 9.8 9.6 Cardiac Enzymes 08/27/24 08/27/24 Range/Units 00:43 03:20 Troponin I < 0.020 < 0.020 (0.0-0.045) ng/mL Liver Function 08/27/24 08/27/24 Range/Units 00:43 05:46 Total Bilirubin 0.4 0.4 (0.3-1.2) mg/dL AST 21 20 (0-34) U/L ALT 44 44 (10-49) U/L Alkaline Phosphatase 64 60 (46-116) U/L Albumin 4.5 4.6 (3.5-5.0) gm/dL Quality Measures Quality Measures none Medications Home Medications and Allergies Home Medications ?Medication ?Instructions ?Recorded ?Confirmed ?Type apixaban 5 mg tablet (Eliquis) 5 mg PO BID 08/27/24 08/27/24 History Allergies Allergy/AdvReac Type Severity Reaction Status Date / Time cyclobenzaprine Allergy Severe Swelling Verified 08/10/24 17:54 morphine Allergy Severe Nausea/Vomi Verified 08/10/24 17:54 tiing Visit Medications Acetaminophen (Acetaminophen 325 Mg Tablet) 650 mg PO Q6H PRN PRN Reason: Pain 1-3 or Fever >100.3 Stop: 09/26/24 04:21 Heparin Sodium/Dextrose (Heparin In D5w Ivpb) 25,000 unit in 250 mls @ 17.999 mls/hr IV .[id number] [facility]; Protocol Stop: 09/10/24 04:29 Last Titration: 08/27/24 12:56 Dose: 14.862 units/kg/hr, 17.999 mls/hr Ondansetron HCl (Ondansetron Inj 2 Mg/Ml Inj 2 Ml) 4 mg IV Q6H PRN; Protocol PRN Reason: NAUSEA OR VOMITING Stop: 09/26/24 04:21 Discontinued Medications Heparin Sodium (Porcine) (Heparin Sod Inj 5000 Unit/Ml Vial) 8,000 unit IV X1 ONE; Protocol Stop: 08/27/24 04:23 Last Admin: 08/27/24 04:53 Dose: 8,000 unit Assessment & Plan Plan 38-year-old male patient with recent DVT admitted for pulmonary emboli management. #Acute bilateral subsegmental pulmonary embolism #History of DVT On admission patient complaining of chest pain radiating to the back of scapula Patient recently diagnosed with DVT in ED and was discharged on p.o. Eliquis On admission chest CTA indicated above bilateral subsegmental pulmonary emboli Echocardiogram indicated: Normal LV size and function. Estimated EF 55-60%. Normal RV size and function. Trace TR Plan: ? Transition to p.o. Eliquis 5 mg BID ? Patient stable to be discharged home This patient care was discussed with my attending Dr. Neri Duran MD PGY-2 Disclaimer: Minor errors in embedded systems engineer may be present since this note was dictated by speech recognition software.
[2024-08-28] VITALS: BP 125/87; PULSE 78; PULSE 79; RESP 14; TEMP 36; O2SAT 96
[2024-08-28 02:48] LABS: Partial Thromboplastin Time 50.7 Seconds (22.0-36.0)
[2024-08-28 04:00] VITALS: BP 117/79; PULSE 58; PULSE 63; RESP 19; TEMP 36.2; O2SAT 96
[2024-08-28 05:40] VITALS: BMI 36.0
[2024-08-28 06:23] LABS: Basophils % (Auto) 1 % (0-2.5); Eosinophils # (Auto) 0.1 Thou/mm3 (0.0-0.5); Eosinophils % (Auto) 1 % (0-10); Hematocrit 47.6 % (41.0-53.0); Hemoglobin 15.9 g/dL (13.5-16.0); Immature Granulocytes % (Auto) 0 % (0-0); Immature Granulocytes Auto 0.01 Thou/mm3 (0.00-0.00); Lymphocytes # (Auto) 2.5 Thou/mm3 (1.0-4.8); Lymphocytes % (Auto) 41 % (10-50); Mean Corpuscular HGB Conc 33.4 g/dl (31.0-37.0); Mean Corpuscular Hemoglobin 30.4 pg (25.0-35.0); Mean Corpuscular Volume 91 fL (80-100); Monocytes # (Auto) 0.8 Thou/mm3 (0.0-0.8); Monocytes % (Auto) 13 % (0-12); Neutrophils # (Auto) 2.6 Thou/mm3 (1.8-7.7); Neutrophils % (Auto) 44 % (37-80); Nucleated Red Blood Cell % 0 /100 WBC (0); Platelet Count 263 Thou/mm3 (140-440); RDW Standard Deviation 43.5 fL (35.1-43.9); Red Blood Count 5.23 Miln/mm3 (4.50-5.90)
[2024-08-28 06:57] LABS: Alanine Aminotransferase 42 U/L (10-49); Albumin, Serum 4.6 gm/dL (3.5-5.0); Alkaline Phosphatase 61 U/L (46-116); Anion Gap 6 (7-16); Aspartate Amino Transferase 25 U/L (0-34); BUN/Creatinine Ratio 6 Ratio (12-20); Bilirubin,Total 0.6 mg/dL (0.3-1.2); Blood Urea Nitrogen 7 mg/dL (9-23); Calcium 9.7 mg/dL (8.3-10.6); Calcium (Corrected) 9.7 mg/dL (8.5-10.1); Carbon Dioxide 27.8 mMol/L (20.0-31.0); Chloride 105 mMol/L (98-107); Creatinine (Component) 1.2 mg/dL (0.6-1.3); Estimated Creatinine Clearance 111.9 mL/min (>60); Globulin 2.3 gm/dL (2.3-3.5); Glucose 89 mg/dL (74-106); Magnesium 2.3 mg/dL (1.6-2.6); Osmolality,Calculated 274 (275-295); Phosphorous 3.6 mg/dL (2.4-5.1); Potassium 3.7 mMol/L (3.4-5.1); Sodium 139 mMol/L (136-145); Total Protein 6.9 gm/dL (5.7-8.2); eGFR > 60 See Note
[2024-08-28 08:00] VITALS: BP 128/76; PULSE 73; PULSE 75; RESP 19; TEMP 36.2; O2SAT 96
--- NOTE | 2024-08-28 09:33 | ESDS_ITS ---
<Statement entered by Li Mathews DO - 08/29/24 08:20> I, Li Mathews DO, attest that I was physically present for the cabral portions of the service and evaluated the patient with the resident and I reviewed and discussed the case with the resident and agree with the resident's findings and plans of care as documented above <Statement entered by Jammie Milligan MD - 08/28/24 15:56> I discussed with and supervised my co-resident involved in the care of this patient. I agree with the assessment and plan as documented above. Jammie Milligan MD PGY-3 Planned Discharge Date 08/28/24 DS: Providers Provider Date of admission: 08/27/24 04:21 Primary care physician: Donny Gardner MD Admitting Provider: Rodrigo Gross MD Attending Provider on Admission: Li Mathews DO Consults: 08/27/24 08:29 Consult to Cardiology Routine Comment: Bilateral segmental PE Consulting Provider: Akin He Attending Provider on DC: Li Mathews DO Discharging Provider: Demarcus Bernard MD DS: Diagnosis Problem List Completed Was Problem List Reviewed/Reconciled?: Yes Hospital Course Hospital Course Hospital course: Patient is a 38-year-old male with a past medical history significant for left lower limb DVT, right bicep tear s/p repair and left patella fracture s/p repair. Presented to the ED with a chief complaint of chest pain and admitted for treatment and management of acute bilateral pulmonary emboli. For his bilateral subsegmental pulmonary artery embolism, patient was treated with heparin infusion for 1 day and subsequently transition to Xarelto 15 Mg p.o. twice daily for 21 days followed by Xarelto 20 mg p.o. daily. Hypercoagulable workup for unprovoked DVT was ordered. Patient advised to follow-up with his primary care provider to discuss the results. All patient's labs are now returned to baseline. Patient now clinically stable and fit for discharge to home with self-care. Discharge diagnoses: 1. Chest pain?resolved 2. Acute bilateral subsegmental pulmonary artery embolism 3. 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 Nicotine dependence 5. Class II obesity Discharge plan: ? We have started you on a medication Xarelto for your blood clots in your leg and lungs. Take one 15Mg tablet twice a day for 21 days. Then take one 20mg tablet once a day for the next 3 months. ?We have stopped your medication Eliquis. Please discard of any medication you have remaining at home. ? We have ordered blood test to investigate any genetic cause of your blood clots.Including antiphospholipid antibodies, Antithrombin III, anticardiolipin antibodies, homocystine, lupus anticoagulant, protein C&S and factor V Leiden. ? Follow-up with your primary doctor who will have to request the records to see the results of these tests. ? Please follow-up with your primary doctor within 1 week of discharge. ?If you experience any new, worsening or persistent symptoms either call your primary doctor or dial 911 or present to the emergency department. We are grateful to be able to participate in Mr. Dowling's care. We wish him the best. Plan of care discussed with Attending Dr. Mathews and PGY3 Dr. Chel Bernard MD PGY 1 Time spent discussing smoking cessation with patient: more than 10 minutes Time Spent with Patient Time attestation: Total time spent providing and/or coordinating discharge services: Time spent: Greater than 30 minutes (37) Exam Vital Signs Temp Pulse Resp BP Pulse Ox O2 Del Method 97.1 F 73 19 128/76 96 Room Air 08/28/24 08:00 08/28/24 08:00 08/28/24 08:00 08/28/24 08:00 08/28/24 08:00 08/28/24 08:00 Discharge Plan Plan Patient Disposition: HOME (Self Care) Patient condition on transfer: Stable Care Plan Goals: ? We have started you on a medication Xarelto for your blood clots in your leg and lungs. Take one 15Mg tablet twice a day for 21 days. Then take one 20mg tablet once a day for the next 3 months. ?We have stopped your medication Eliquis. Please discard of any medication you have remaining at home. ? We have ordered blood test to investigate any genetic cause of your blood clots.Including antiphospholipid antibodies, Antithrombin III, anticardiolipin antibodies, homocystine, lupus anticoagulant, protein C&S and factor V Leiden. ? Follow-up with your primary doctor who will have to request the records to see the results of these tests. ? Please follow-up with your primary doctor within 1 week of discharge. ?If you experience any new, worsening or persistent symptoms either call your primary doctor or dial 911 or present to the emergency department. Prescriptions/Referrals Prescriptions/Med Rec: New Xarelto DVT-PE Treat 30d Start 15 mg (42)- 20 mg (9) tablets,dose pack See Rx Instructions .ROUTE .COMPLEX Qty: 51 0RF Rx Instructions: take one-15 mg tablet twice daily for 21 days, then one-20 mg tablet once daily; must take with meal/food Discontinued hydrocodone-acetaminophen 5-325 mg tablet 1 tab PO Q6H MDD 3 PRN (Reason: pain) Qty: 7 0RF meloxicam 15 mg tablet 15 mg PO QDAY Qty: 14 0RF hydrocodone-acetaminophen 5-325 mg tablet 1 tab PO BID MDD 10mg PRN (Reason: pain) Qty: 10 0RF hydrocodone-acetaminophen 5-325 mg tablet 1 tab PO BID MDD 4 PRN (Reason: pain) Qty: 10 0RF meloxicam 7.5 mg tablet 7.5 mg PO QDAY Qty: 10 0RF dexamethasone 6 mg tablet 6 mg PO QDAY Qty: 10 0RF ibuprofen 800 mg tablet 800 mg PO TID PRN (Reason: pain) Qty: 30 0RF hydrocodone-acetaminophen 5-325 mg tablet 1 tab PO BID MDD 10 PRN (Reason: pain) Qty: 10 0RF Eliquis DVT-PE Treat 30D Start 5 mg (74 tabs) tablets,dose pack 5 mg PO BID Qty: 74 0RF Rx Instructions: 10 mg BID first 7 days, then 5 mg BID afterwards. Eliquis 5 mg Tablet 5 mg PO BID Referrals: Donny Gardner MD [Primary Care Provider] - Patient/Caregiver Discharge Instructions Education Materials: Embolism Pulmonary Dc Print Language: Kinyarwanda Stand Alone Forms: Aylin Award Info., Patient Portal Info Letter Discharge Order Discharge Orders: Discharge (Routine); Ordered 08/28/24 Ordered By: Demarcus Bernard Quality Discharge Quality Measures VTE therapy (Heparin infusion)
[2024-08-28 10:38] LABS: Partial Thromboplastin Time 56.7 Seconds (22.0-36.0)
[2024-08-28] MEDS: RIVAROXABAN 10 MG, RIVAROXABAN 5 MG 15 MG PO (10:47)
[2024-08-28 11:59] VITALS: PULSE 75
[2024-08-28 12:00] VITALS: BP 118/77; PULSE 87; RESP 18; TEMP 36.1; O2SAT 96
[2024-08-28 14:23] VITALS: BP 153/97; PULSE 79; RESP 15; TEMP 36.4; O2SAT 95
[2024-09-02 07:04] LABS: PTT-LA Screen 178 seconds (< OR = 40); Protein C Antigen, Total* 91 % normal (70-140); Protein S Antigen, Total* 96 % normal (70-140)
[2024-09-02 07:05] LABS: Antithrombin III, Activity 102 % normal (80-135); Antithrombin III, Antigen 89 % normal (80-120); Hexagonal Phase Confirm NEGATIVE (NEGATIVE); dRVVT Screen 43 seconds (< OR = 45)
[2024-09-03 06:38] LABS: Factor V Leiden Mutation NEGATIVE
[2024-09-09 06:28] LABS: Homocysteine* 12.1 umol/L (<11.4)
== END 2024-08-28 14:30 | disposition home or self-care (01) | DRG 176 ==
LOC: SERX 08-27 04:40 → SERHOLD 08-27 04:43 → S2NX 08-27 09:47
PROVIDERS: Physician Assistant; Admitting Provider Student in an Organized Health Care Education/Training Program; Emergency Provider Emergency Medicine; PCP Family Medicine; Visit Provider Internal Medicine
DX: I26.94 Multiple subsegmental thrombotic pulmonary emboli without acute cor pulmonale (principal); I82.542 Chronic embolism and thrombosis of left tibial vein; I10 Essential (primary) hypertension; E66.812 Obesity, class 2; Z68.36 Body mass index [BMI] 36.0-36.9, adult; F17.290 Nicotine dependence, other tobacco product, uncomplicated; Z98.890 Other specified postprocedural states; Z79.01 Long term (current) use of anticoagulants; Z88.5 Allergy status to narcotic agent
CPT/HCPCS: 36415; 71275; 80053; 80061; 81241; 83090; 83735; 83880; 84100; 84484; 85025; 85300; 85301; 85302; 85305; 85598; 85610; 85613; 85730; 86146; 86147; 86148; 93005; 93306; 99285; A4649; J1643; J1644; Q9967; A9270

== ENCOUNTER 2024-10-14 20:01 | Emergency (ER) | payer OTHER, MEDICAID, SELFPAY ==
--- NOTE | 2024-10-14 20:07 | XR_ITS ---
Examination: CTA chest with intravenous contrast 2-D reconstructions 3-D reconstructions, vascular Date and time of exam: October 14, 2024 1038 hrs. Indications: Chest pain shortness of breath today CTDI: vol (mGy) 14.7 DLP: (mGycm) 601 Technique: Multiple axial sections of the thorax have been obtained. 3 mm slice thickness, from below the hemidiaphragms to above the apices of the lungs. Mediastinal and lung density settings have been obtained. 2-D sagittal and coronal reconstructions. 3-D angiographic renderings, 3-D volume renderings, 3D post processing, vascular maximum intensity projections obtained. Contrast administered is 100 cc Isovue-370. Low dose protocols were performed. One or more of the following dose reduction techniques were used; automated exposure control, adjustment of the mA and/or KV according to patient size, use of iterative reconstruction technique. Findings: No thoracic aortic aneurysm dilatation or dissection No pulmonary artery emboli No paratracheal tracheobronchial or bronchopulmonary adenopathy No pneumonia or pulmonary edema No focal liver or splenic lesions Absent gallbladder No hydronephrosis Impression: Negative for pulmonary artery emboli
--- NOTE | 2024-10-14 20:07 | EDNOTE_ITS ---
ED Extremity Problem RME/HPI General Chief complaint: Extremity Problem,Nontraumatic Stated complaint: LEFT LEG CRAMPING Time Seen by Provider: 10/14/24 20:04 Arrival date/time: 10/14/24 20:01 RME / HPI RME / HPI Narrative: This section includes all my notes and documentations, including HPI, PE, and ED course. Raji Silveira MD HPI: 39yo male with a history of DVT and PE in 08/2024 presents to the ED for a chief complaing of LLE cramping. Patient states he's had LLE cramping for the last 3 days. He states he is supposed to be on blood thinners, but has not been taking them due to them limiting what I can do . He denies any chest pain, shortness of breath, fever, chills or any other associated symptoms. No other complaints. ROS: All negative except as documented in HPI. Physical Exam: General: Alert and oriented. No acute distress when remaining still. Eyes: Conjunctivae and lids clear. ENT: No nasal congestion. Neck: Supple. Heart: RRR. Lungs: No respiratory distress. Good air movement. No rhonchi, wheezing, rales. Abdomen: Soft and nontender. Legs: No clubbing, cyanosis, edema. Skin: Warm and dry. Neuro: Alert and oriented X 3. I reviewed all diagnostic test results. My interpretation of the EKG is sinus rhythm with no acute ST?T changes. My review of the bilateral leg US report is no DVT. My review of the chest CT report is no PE. Blood tests unremarkable. At this point, diagnoses include musculoskeletal left leg pain. Recommended supportive care. Based on my best medical judgment, made decision no further evaluation or treatment indicated at this time. Patient understands and agrees to the discharge instructions customized and printed, see below. Discharge Instructions from Dr. Silveira printed for you: 1. Fortunately, there is no blood clots in your leg or in your lungs. 2. Your leg pain is most probably due to sprain/strain, see attached handout. 3. Activity as tolerated. Apply ice/heat if helpful. Tylenol/ibuprofen as needed. 4. See a private doctor on 10/18/2024 for recheck and further care. 5. Seek immediate medical care with worsening or with any concerns. Raji Silveira MD Related Data Previous Rx's ?Medication ?Instructions ?Recorded rivaroxaban 15 mg (42)-20 mg (9) See Rx Instructions P O .COMPLEX 08/28/24 tablets in a starter pack (Xarelto #51 tabs DVT-PE Treatment 30-Day Starter) Allergies Allergy/AdvReac Type Severity Reaction Status Date / Time cyclobenzaprine Allergy Severe Swelling Verified 10/14/24 20:02 morphine Allergy Severe Nausea/Vomi Verified 10/14/24 20:02 tiing Review of Systems Review of Systems Systems Reviewed: All systems reviewed, normal except as documented Past Medical History Past Medical History NEUROLOGIC: Negative Neurological Disorders CARDIAC: Positive Cardiac Disorders, Cardiac Arrhythmia and Deep Vein Thrombosis; Negative Congestive Heart Failure RESPIRATORY: Negative Chronic Obstructive Pulmonary Disease (COPD) or Asthma GASTROINTESTINAL: Negative Gastrointestinal Disorders GENITOURINARY: Positive Genitourinary Disorders and Kidney Stones; Negative Renal Disease MUSCULOSKELETAL: Positive Musculoskeletal Disorders and Arthritis ENDOCRINE: Negative Endocrine Disorders, Diabetes Mellitus Type 1 or Diabetes Mellitus Type 2 HEMATOLOGIC: Positive Clotting Problems (LEG DVT); Negative Sickle Cell Disease PSYCHO/SOCIAL: Positive Depression and Anxiety OTHER HISTORY: Positive Chicken Pox and Measles; Negative Hospitalization, Autoimmune Disease, Down Syndrome, Developmental Delay, Falls, Blood Transfusions, Anesthesia Reactions, MRSA, Vancomycin- Resistant Enterococci or Cancer Family History FAMILY HISTORY: Negative Family Cardiac Disorders Surgical History SURGICAL: Negative Abdominal Surgery Social History SMOKING STATUS: Current every day smoker SUBSTANCE USE: does not use ED Exam Narrative Physical exam: As noted in HPI. Course Quality Measures none Orders Category Date Time Status CT Screening NOW Care 10/14/24 20:07 Completed EKG (ED ONLY) *Do not use* NOW Care 10/14/24 20:08 Completed Saline [Insert IV] NOW Care 10/14/24 20:[address] angio chest Stat Exams 10/14/24 20:07 Completed EKG (ED Only) Stat Exams 10/14/24 20:08 Draft US venous doppler LE BI Stat Exams 10/14/24 20:08 Completed BNP [B-Type Natriuretic Peptide] Stat Lab 10/14/24 20:15 Completed CBC Stat Lab 10/14/24 20:15 Completed CMP [Comprehensive Metabolic Panel] Stat Lab 10/14/24 20:15 Completed D-Dimer Stat Lab 10/14/24 20:15 Completed Magnesium Stat Lab 10/14/24 20:15 Completed PT [Prothrombin Time with INR] Stat Lab 10/14/24 20:15 Completed PTT [Partial Thromboplastin Time] Stat Lab 10/14/24 20:15 Completed Troponin I Stat Lab 10/14/24 20:15 Completed Vital Signs Vital signs: Vital Signs Temperature 98.5 F 10/14/24 20:23 Pulse Rate 73 10/14/24 20:23 Respiratory Rate 18 10/14/24 20:23 Blood Pressure 136/98 H 10/14/24 20:23 Pulse Oximetry (%) 96 10/14/24 20:23 Oxygen Delivery Method Room Air 10/14/24 20:23 Extremity Problem MDM Narrative MDM Narrative:: Scribe Attestation: 10/14/24 - Danita Montes am scribing for and in the presence of Dr. Silveira. Patient data External records reviewed:: [facility] previous records (Per chart review, patient was admitted here on 08/27/24 for PE.) Clinical information provided by:: patient Social determinants that could affect healthcare access:: none Patient has the following chronic illnesses:: DVT, PE How is presenting disease/condition affected by chronic disease/condition?: caused by Evaluation data The following diagnostics were reviewed and interpreted by me:: lab results, radiology exam(s) and EKG tracing(s) (My interpretation of the EKG is: Sinus rhythm (78 bpm) with nonspecific ST-T changes. Raji Silveira MD) Lab and/or radiology exams considered but not ordered:: none Interpretation Summary: Normal diagnostics Medications / Prescriptions Medications or Prescriptions considered but not ordered:: none Medication administrations:: None Consultations Consultation(s) initiated? (list below): No Diagnosis Extremity Problem Differential Diagnosis: cellulitis, superficial thrombophlebitis, deep venous thrombosis of upper extremity, lower extremity edema and deep vein thrombosis of lower extremity Most likely diagnosis given after review of the tests above:: Left musculoskeletal leg pain Admission Indicated Admission indicated?: not indicated Explain why admission is indicated or not indicated:: No criteria for admission. Admission Request Was there a request for admission?: No Disposition Plan Disposition Plan: Discharge Discharge Attestation Discharge Attestation: The patient and all family members were given an opportunity to ask questions and understood the discharge instructions. Discharge instructions specifically effects, indications for sooner follow up or return to the emergency department, and the expected course of current diagnosis. Patient condition: Stable Discharge Plan Plan Patient Disposition: HOME (Self Care) Prescriptions/Referrals Prescriptions/Med Rec: No Action Xarelto DVT-PE Treat 30d Start 15 mg (42)- 20 mg (9) tablets,dose pack See Rx Instructions .ROUTE .COMPLEX Qty: 51 0RF Rx Instructions: take one-15 mg tablet twice daily for 21 days, then one-20 mg tablet once daily; must take with meal/food Referrals: Madhu Mckenna MD [Primary Care Provider] - In 1 week Problem List Clinical Impression: Left leg pain Patient/Caregiver Discharge Instructions Discharge Activity: activity as tolerated Education Materials: ED Muscle Strain, Extremity Additional Instructions: Discharge Instructions from Dr. Silveira printed for you: 1. Fortunately, there is no blood clots in your leg or in your lungs. 2. Your leg pain is most probably due to sprain/strain, see attached handout. 3. Activity as tolerated. Apply ice/heat if helpful. Tylenol/ibuprofen as needed. 4. See a private doctor on 10/18/2024 for recheck and further care. 5. Seek immediate medical care with worsening or with any concerns. Print Language: Frisian Stand Alone Forms: Aylin Award Info., Patient Portal Info Letter
--- NOTE | 2024-10-14 20:08 | XR_ITS ---
Examination: Venous duplex lower extremity sonogram, bilateral. Date and time of exam: October 14, 2024 2025 hrs. Indications: Leg clots history in August 2024, leg cramping last 3 days Technique: Multiple sonographic images of the deep venous system have been obtained. B-mode/2-D grayscale imaging of vascular structures and Doppler spectral analysis (waveforms) and color performed Both legs are examined. Findings: Deep venous systems do not demonstrate abnormal echogenicity. All visualized deep veins exhibit compressibility. All visualized deep veins exhibit augmentation. Impression: Negative for deep vein thrombosis
--- NOTE | 2024-10-14 20:08 | EKG_ITS ---
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
[2024-10-14 20:23] VITALS: BP 136/98; PULSE 73; RESP 18; TEMP 36.9; O2SAT 96
[2024-10-14 20:47] LABS: Basophils # (Auto) 0.1 Thou/mm3 (0.0-0.2); Basophils % (Auto) 1 % (0-2.5); Eosinophils # (Auto) 0.1 Thou/mm3 (0.0-0.5); Eosinophils % (Auto) 1 % (0-10); Hemoglobin 17.2 g/dL (13.5-16.0); Immature Granulocytes % (Auto) 0 % (0-0); Immature Granulocytes Auto 0.02 Thou/mm3 (0.00-0.00); Lymphocytes # (Auto) 2.8 Thou/mm3 (1.0-4.8); Lymphocytes % (Auto) 31 % (10-50); Mean Corpuscular HGB Conc 35.1 g/dl (31.0-37.0); Mean Corpuscular Hemoglobin 30.6 pg (25.0-35.0); Mean Corpuscular Volume 87 fL (80-100); Monocytes # (Auto) 0.7 Thou/mm3 (0.0-0.8); Monocytes % (Auto) 7 % (0-12); Neutrophils # (Auto) 5.4 Thou/mm3 (1.8-7.7); Neutrophils % (Auto) 60 % (37-80); Nucleated Red Blood Cell % 0 /100 WBC (0); Platelet Count 310 Thou/mm3 (140-440); RDW Standard Deviation 40.3 fL (35.1-43.9); Red Blood Count 5.62 Miln/mm3 (4.50-5.90); White Blood Count 9.1 Thou/mm3 (3.8-10.6)
[2024-10-14 20:48] VITALS: BMI 36.6
[2024-10-14 20:55] LABS: Partial Thromboplastin Time 23.9 Seconds (22.0-36.0); Prothrombin Time 10.7 Seconds (9.0-12.2)
[2024-10-14 21:16] LABS: Alanine Aminotransferase 41 U/L (10-49); Albumin, Serum 4.6 gm/dL (3.5-5.0); Albumin/Globulin Ratio 1.6 (1.2-2.2); Alkaline Phosphatase 58 U/L (46-116); Anion Gap 8 (7-16); Aspartate Amino Transferase 30 U/L (0-34); BUN/Creatinine Ratio 12 Ratio (12-20); Bilirubin,Total 0.6 mg/dL (0.3-1.2); Blood Urea Nitrogen 15 mg/dL (9-23); Calcium 10.2 mg/dL (8.3-10.6); Calcium (Corrected) 10.2 mg/dL (8.5-10.1); Carbon Dioxide 27.5 mMol/L (20.0-31.0); Chloride 109 mMol/L (98-107); Creatinine (Component) 1.3 mg/dL (0.6-1.3); Estimated Creatinine Clearance 103.1 mL/min (>60); Globulin 2.8 gm/dL (2.3-3.5); Glucose 107 mg/dL (74-106); Osmolality,Calculated 287 (275-295); Potassium 4.3 mMol/L (3.4-5.1); Sodium 144 mMol/L (136-145); Total Protein 7.4 gm/dL (5.7-8.2); Troponin I < 0.002 ng/mL (0.0-0.045); eGFR > 60 See Note
[2024-10-14 21:41] LABS: B-Type Natriuretic Peptide < 20 pg/mL (0-100)
[2024-10-14 22:02] LABS: D-Dimer < 250 ng/mL (<600)
== END 2024-10-15 00:05 | disposition home or self-care (01) ==
PROVIDERS: Emergency Provider Emergency Medicine; PCP Dentist
DX: M79.605 Pain in left leg (principal); F17.210 Nicotine dependence, cigarettes, uncomplicated; T45.516A Underdosing of anticoagulants, initial encounter; Z91.128 Patient's intentional underdosing of medication regimen for other reason; Z86.718 Personal history of other venous thrombosis and embolism; Z86.711 Personal history of pulmonary embolism
CPT/HCPCS: 36415; 71275; 80053; 83735; 83880; 84484; 85025; 85379; 85610; 85730; 93005; 93970; 99285; A4649; Q9967

== ENCOUNTER 2025-03-17 03:26 | Emergency (ER) | payer OTHER, MEDICAID, SELFPAY ==
[2025-03-17 03:28] VITALS: BMI 36.4
[2025-03-17 03:35] VITALS: BP 125/83; PULSE 110; RESP 19; TEMP 37.1; O2SAT 96
--- NOTE | 2025-03-17 03:51 | XR_ITS ---
Examination: CT left knee, without contrast. 2-D sagittal reconstructions. 2-D coronal reconstructions. 3-D reconstructions. Date and time of exam:2024, 0433 hours INDICATIONS: Left knee pain and instability post injury today CTDI: vol (mGy):11.4 DLP: (mGycm):300 Technique: Multiple 1.25 mm axial sections of the left knee without intravenous contrast have been obtained. 2-D sagittal and coronal reconstructions have been obtained. 3-D reconstructions have been obtained. Low dose protocols were performed. One or more of the following dose reduction techniques were used; automated exposure control, adjustment of the mA and/or KV according to patient size, use of iterative reconstruction technique. Findings: Mild osteopenia. 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
--- NOTE | 2025-03-17 05:20 | PRELIM_ITS ---
CT left knee without intravenous contrast (axial sections with sagittal and coronal reformats); March 17, 2025 at 0433 hours Clinical History: Knee gave out. Comparison: None available at the time of this report. Findings: No acute fractures or dislocation. Fixation hardware in the proximal tibia. Impression: No acute findings. Consider correlation with MRI. Report Electronically Signed By: William Madrid 03/17/2025 5:19:37 AM [EST]
[2025-03-17 05:27] VITALS: RESP 16
--- NOTE | 2025-03-17 05:32 | PD.EDLOWEX ---
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 Patient doesn't want meds, he just wants some documentation/tests because [facility]. Limitations: no limitations Related Data Previous Rx's ?Medication ?Instructions ?Recorded rivaroxaban 15 mg (42)-20 mg (9) See Rx Instructions PO .COMPLEX 08/28/24 tablets in a starter pack (Xarelto #51 tabs DVT-PE Treatment 30-Day Starter) Allergies Allergy/AdvReac Type Severity Reaction Status Date / Time cyclobenzaprine Allergy Severe Swelling Verified 03/17/25 03:29 morphine Allergy Severe Nausea/Vomi Verified 03/17/25 03:29 tiing Review of Systems Review of Systems Systems Reviewed: All systems reviewed, normal except as documented Constitutional Constitutional: Reports system reviewed and no additional complaints, except as documented, Denies fever(s) and Denies headache(s) ENT Ears, Nose, Mouth, and Throat: Denies disequilibrium and Denies headache(s) Cardiovascular Cardiovascular: Reports system reviewed and no additional complaints, except as documented, Denies chest pain and Denies dyspnea Respiratory Respiratory: Reports system reviewed and no additional complaints, except as documented, Denies cough and Denies dyspnea Gastrointestinal Gastrointestinal: Reports system reviewed and no additional complaints, except as documented, Denies abdominal pain, Denies nausea and Denies vomiting Musculoskeletal Musculoskeletal: Reports as per HPI and Reports arthralgias Neurologic Neurologic: Reports system reviewed and no additional complaints, except as documented, Denies confusion, Denies disequilibrium and Denies headache(s) Psychiatric Psychiatric: Denies confusion Past Medical History Past Medical History NEUROLOGIC: Negative Neurological Disorders CARDIAC: Positive Cardiac Arrhythmia and Deep Vein Thrombosis; Negative Cardiac Disorders or Congestive Heart Failure RESPIRATORY: Negative Chronic Obstructive Pulmonary Disease (COPD) or Asthma GASTROINTESTINAL: Negative Gastrointestinal Disorders GENITOURINARY: Positive Genitourinary Disorders and Kidney Stones; Negative Renal Disease MUSCULOSKELETAL: Positive Musculoskeletal Disorders and Arthritis ENDOCRINE: Negative Endocrine Disorders, Diabetes Mellitus Type 1 or Diabetes Mellitus Type 2 HEMATOLOGIC: Positive Clotting Problems (LEG DVT); Negative Sickle Cell Disease PSYCHO/SOCIAL: Positive Depression and Anxiety OTHER HISTORY: Positive Chicken Pox and Measles; Negative Hospitalization, Autoimmune Disease, Down Syndrome, Developmental Delay, Falls, Blood Transfusions, Anesthesia Reactions, MRSA, Vancomycin-Resistant Enterococci or Cancer Family History FAMILY HISTORY: Negative Family Cardiac Disorders Surgical History SURGICAL: Negative Abdominal Surgery Social History SMOKING STATUS: Current every day smoker SUBSTANCE USE: does not use ED Exam General Limitations: Present no limitations General appearance: Present alert and in no apparent distress Head Head exam: Present atraumatic Eye Eye exam: Present normal appearance, PERRL and EOMI ENT ENT exam: Present normal exam, normal oropharynx and mucous membranes moist Neck Neck exam: Present normal inspection, full ROM and trachea midline Chest Chest inspection: Present normal inspection and symmetric chest wall rise Respiratory Respiratory exam: Present normal lung sounds bilaterally Cardiovascular Cardiovascular exam: Present regular rate, normal rhythm and normal heart sounds Abdominal Exam Abdominal exam: Present soft and normal bowel sounds Extremities Exam Extremities exam: Present full ROM Expanded Lower Extremity Exam Knee exam: Present other (L knee immobilizer) Back Exam Back exam: Present normal inspection and full ROM Neurological Exam Neurological exam: Present alert, oriented X3 and CN II-XII intact Psychiatric Psychiatric exam: Present normal affect and normal mood Skin Skin exam: Present warm, dry, intact and normal color Course Quality Measures none Orders Category Date Time Status CT knee LT wo con Stat Exams 03/17/25 03:51 Taken Vital Signs Vital signs: Vital Signs Temperature 98.8 F 03/17/25 03:35 Pulse Rate 110 H 03/17/25 03:35 Respiratory Rate 19 03/17/25 03:35 Blood Pressure 125/83 03/17/25 03:35 Pulse Oximetry (%) 96 03/17/25 03:35 Oxygen Delivery Method Room Air 03/17/25 03:35 O2 at 96% on RA and WNLs Extremity Injury, Lower MDM Narrative MDM Narrative:: 39M with history of chronic L knee pain (s/p surgeries) and DVT/PE presents to ED for evaluation because his L knee gave out on him. Patient doesn't want meds, he just wants some documentation/tests because [facility] Physical exam reveals knee immobilizer on L knee. Gait intact. Patient is afebrile, calm, and alert. CT unremarkable. Tile Setter given. 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 (list below): No Diagnosis Extremity Injury, Lower Differential Diagnosis: ankle sprain and strain, acute internal derangement of knee, fracture of femur, fracture of hip, puncture wound of foot, fracture of toe and ankle fracture Most likely diagnosis given after review of the tests above:: internal knee derangement Admission Indicated Admission indicated?: not indicated Admission Request Was there a request for admission?: No Disposition Plan Disposition Plan: Discharge Discharge Attestation Discharge Attestation: The patient and all family members were given an opportunity to ask questions and understood the discharge instructions. Discharge instructions specifically effects, indications for sooner follow up or return to the emergency department, and the expected course of current diagnosis. Patient condition: Stable Discharge Plan Plan Patient Disposition: HOME (Self Care) Discharge Disposition comment: Stable Prescriptions/Referrals Prescriptions/Med Rec: No Action Xarelto DVT-PE Treat 30d Start 15 mg (42)- 20 mg (9) tablets,dose pack See Rx Instructions .ROUTE .COMPLEX Qty: 51 0RF Rx Instructions: take one-15 mg tablet twice daily for 21 days, then one-20 mg tablet once daily; must take with meal/food Referrals: No Primary/Family,Physician [Primary Care Provider] - In 1 week Problem List Clinical Impression: Acute internal derangement of knee Patient/Caregiver Discharge Instructions Education Materials: How Your Knee Works Additional Instructions: Please follow-up with PCP within 24-48 hours and return immediately if symptoms worsen. If problem persists, recommend outpatient PT and/or MRI follow-up. In the meantime, rest, use ice/heat, and/or compression. Print Language: Czech Stand Alone Forms: Patient Portal Info Letter SOLANGE/ZACHARY Supervising Physician SOLANGE/ZACHARY Supervising Physician: Dr. Silveira
== END 2025-03-17 05:28 | disposition home or self-care (01) ==
PROVIDERS: Emergency Provider Emergency Medicine
DX: S83.105A Unspecified dislocation of left knee, initial encounter (principal); X58.XXXA Exposure to other specified factors, initial encounter
CPT/HCPCS: 73700; 99283

== ENCOUNTER 2025-06-19 21:19 | Emergency (ER) | payer OTHER, MEDICAID, SELFPAY ==
[2025-06-19 21:21] VITALS: BMI 36.6
[2025-06-19 21:40] VITALS: BP 152/83; PULSE 84; RESP 20; TEMP 36.9; O2SAT 97
--- NOTE | 2025-06-19 21:53 | EDNOTE_ITS ---
Lower Extremity Injury RME/HPI General Chief Complaint: Extremity Injury, Lower Stated Complaint: BILAT LEG PAIN SWELLING HX OF DVT Time Seen by Provider: 06/19/25 21:24 Arrival date/time: 06/19/25 21:19 RME / HPI RME / HPI Narrative: See [facility] for Dr. Silveira's HPI documentation. Related Data Previous Rx's ?Medication ?Instructions ?Recorded rivaroxaban 15 mg (42)-20 mg (9) See Rx Instructions P O .COMPLEX 08/28/24 tablets in a starter pack (Xarelto #51 tabs DVT-PE Treatment 30-Day Starter) Allergies Allergy/AdvReac Type Severity Reaction Status Date / Time cyclobenzaprine Allergy Severe Swelling Verified 06/19/25 21:24 morphine Allergy Severe Nausea/Vomi Verified 06/19/25 21:24 tiing Review of Systems Review of Systems Systems Reviewed: All systems reviewed, normal except as documented Past Medical History Past Medical History NEUROLOGIC: Negative Neurological Disorders CARDIAC: Positive Cardiac Arrhythmia and Deep Vein Thrombosis; Negative Cardiac Disorders or Congestive Heart Failure RESPIRATORY: Negative Chronic Obstructive Pulmonary Disease (COPD) or Asthma GASTROINTESTINAL: Negative Gastrointestinal Disorders GENITOURINARY: Positive Genitourinary Disorders and Kidney Stones; Negative Renal Disease MUSCULOSKELETAL: Positive Musculoskeletal Disorders and Arthritis ENDOCRINE: Negative Endocrine Disorders, Diabetes Mellitus Type 1 or Diabetes Mellitus Type 2 HEMATOLOGIC: Positive Clotting Problems (LEG DVT); Negative Sickle Cell Disease PSYCHO/SOCIAL: Positive Depression and Anxiety OTHER HISTORY: Positive Chicken Pox and Measles; Negative Hospitalization, Autoimmune Disease, Down Syndrome, Developmental Delay, Falls, Blood Transfusions, Anesthesia Reactions, MRSA, Vancomycin- Resistant Enterococci or Cancer Family History FAMILY HISTORY: Negative Family Cardiac Disorders Surgical History SURGICAL: Negative Abdominal Surgery Social History SMOKING STATUS: Current every day smoker SUBSTANCE USE: does not use ED Exam Narrative Physical exam: See [facility] for Dr. Silveira's physical exam documentation. Course Quality Measures none Orders Category Date Time Status CT Screening NOW Care 06/19/25 22:01 Completed Saline [Insert IV] NOW Care 06/19/25 22:01 Completed US venous doppler LE BI Stat Exams 06/20/25 00:01 Taken XR chest 1V portable Stat Exams 06/19/25 22:01 Completed BNP [B-Type Natriuretic Peptide] Stat Lab 06/19/25 22:20 Completed Bilirubin,Direct Stat Lab 06/19/25 22:20 Completed CBC Stat Lab 06/19/25 22:20 Completed CK [Creatine Kinase] Stat Lab 06/19/25 22:20 Completed CMP [Comprehensive Metabolic Panel] Stat Lab 06/19/25 22:20 Completed D-Dimer Stat Lab 06/19/25 22:20 Completed Magnesium Stat Lab 06/19/25 22:20 Completed PT [Prothrombin Time with INR] Stat Lab 06/19/25 22:20 Completed PTT [Partial Thromboplastin Time] Stat Lab 06/19/25 22:20 Completed TSH [Thyroid Stimulating Hormone] Stat Lab 06/19/25 22:20 Completed Troponin I Stat Lab 06/19/25 22:20 Completed Vital Signs Vital signs: Vital Signs Temperature 98.4 F 06/19/25 21:40 Pulse Rate 84 06/19/25 21:40 Respiratory Rate 20 06/19/25 21:40 Blood Pressure 152/83 H 06/19/25 21:40 Pulse Oximetry (%) 97 06/19/25 21:40 Oxygen Delivery Method Room Air 06/19/25 21:40 Extremity Injury, Lower MDM Narrative MDM Narrative:: This section includes all my notes and documentations, including HPI, PE, and ED course. Raji Silveira MD HPI: 39-year-old male here with about a week history of discomfort in both legs. Has trouble localizing the pain. No significant swelling. No redness. No chest pain or shortness of breath. No unusual cough. 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 No other complaints. ROS: All negative except as documented in HPI. Physical Exam: General: Alert and oriented. No acute distress. Eyes: Conjunctivae and lids clear. ENT: No nasal congestion. Neck: Supple. Heart: RRR. Lungs: No respiratory distress. Good air movement. No rhonchi, wheezing, rales. Legs: No clubbing, cyanosis, edema. Skin: Warm and dry. Neuro: Alert and oriented X 3. I reviewed all diagnostic test results. My interpretation of the chest x-ray is NAD. My review of the BLE US report is no DVT. Blood tests are unremarkable. At this point, diagnoses include: Bilateral musculoskeletal leg pain Recommended supportive care. Based on my best medical judgment, made decision no further evaluation or treatment indicated at this time. Patient understands and agrees to the discharge instructions customized and printed, see below. Discharge Instructions from Dr. Silveira printed for you: 1. After extensive evaluation, there are no serious conditions (including blood clots or electrolyte abnormalities) causing your bilateral leg pain. 2. The pain is most likely musculoskeletal, such as from sprains and strains. 3. Try decreased weightbearing and elevating above the waist level for 3 days. 4. Apply ice or heat if helpful. 5. Try Tylenol and ibuprofen. 6. See a private doctor on 06/25/2025 if not complete better. 7. Seek immediate medical care with worsening or with any concerns. Raji Silveira MD Patient data External records reviewed:: [facility] previous records (Per chart review, patient was seen here on 03/17/25 for acute internal derangement of knee.) Clinical information provided by:: patient Social determinants that could affect healthcare access:: none Patient has the following chronic illnesses:: none How is presenting disease/condition affected by chronic disease/condition?: no chronic disease Evaluation data The following diagnostics were reviewed and interpreted by me:: lab results and radiology exam(s) Lab and/or radiology exams considered but not ordered:: none Interpretation Summary: I reviewed all diagnostic test results. My interpretation of the chest x-ray is NAD. My review of the BLE US report is no DVT. Blood tests are unremarkable. Medications / Prescriptions Medications or Prescriptions considered but not ordered:: none Medication administrations:: none Consultations Consultation(s) initiated? (list below): No Diagnosis Extremity Injury, Lower Differential Diagnosis: other (DVT, musculoskeletal pain, dehydration, electrolyte abnormality) Most likely diagnosis given after review of the tests above:: Bilateral leg pain Admission Indicated Admission indicated?: not indicated Explain why admission is indicated or not indicated:: With no condition needing emergent intervention, there was no indication for admission. Admission Request Was there a request for admission?: No Disposition Plan Disposition Plan: Discharge Discharge Attestation Discharge Attestation: The patient and all family members were given an opportunity to ask questions and understood the discharge instructions. Discharge instructions specifically effects, indications for sooner follow up or return to the emergency department, and the expected course of current diagnosis. Patient condition: Stable Discharge Plan Plan Patient Disposition: HOME (Self Care) Prescriptions/Referrals Prescriptions/Med Rec: No Action Xarelto DVT-PE Treat 30d Start 15 mg (42)- 20 mg (9) tablets,dose pack See Rx Instructions .ROUTE .COMPLEX Qty: 51 0RF Rx Instructions: take one-15 mg tablet twice daily for 21 days, then one-20 mg tablet once daily; must take with meal/food Referrals: No Primary/Family,Physician [Primary Care Provider] - In 1 week Problem List Clinical Impression: Bilateral leg pain Patient/Caregiver Discharge Instructions Discharge Activity: activity as tolerated Education Materials: ED Muscle Strain, Extremity Additional Instructions: Discharge Instructions from Dr. Silveira printed for you: 1. After extensive evaluation, there are no serious conditions (including blood clots or electrolyte abnormalities) causing your bilateral leg pain. 2. The pain is most likely musculoskeletal, such as from sprains and strains. 3. Try decreased weightbearing and elevating above the waist level for 3 days. 4. Apply ice or heat if helpful. 5. Try Tylenol and ibuprofen. 6. See a private doctor on 06/25/2025 if not complete better. 7. Seek immediate medical care with worsening or with any concerns. Print Language: Panamanian Stand Alone Forms: [employer] Award Info., Patient Portal Info Letter
--- NOTE | 2025-06-19 22:01 | XR_ITS ---
EXAMINATION: PA chest single view TECHNIQUE: Upright PA chest single view Date and time: June 19, 2025, 11:30 p.m. INDICATIONS: Shortness of breath today FINDINGS: Normal heart size Lungs are clear. The osseous structures are intact BB density projects in the upper abdomen adjacent to the thoracic spine on the right side, noted on the 2019 exam IMPRESSION: No active disease
[2025-06-19 22:42] LABS: Basophils # (Auto) 0.1 Thou/mm3 (0.0-0.2); Basophils % (Auto) 1 % (0-2.5); Eosinophils # (Auto) 0.1 Thou/mm3 (0.0-0.5); Eosinophils % (Auto) 2 % (0-10); Hematocrit 50.0 % (41.0-53.0); Hemoglobin 17.1 g/dL (13.5-16.0); Immature Granulocytes Auto 0.01 Thou/mm3 (0.00-0.00); Lymphocytes # (Auto) 2.9 Thou/mm3 (1.0-4.8); Lymphocytes % (Auto) 36 % (10-50); Mean Corpuscular HGB Conc 34.2 g/dl (31.0-37.0); Mean Corpuscular Hemoglobin 30.7 pg (25.0-35.0); Mean Corpuscular Volume 90 fL (80-100); Monocytes # (Auto) 0.6 Thou/mm3 (0.0-0.8); Monocytes % (Auto) 7 % (0-12); Neutrophils # (Auto) 4.3 Thou/mm3 (1.8-7.7); Neutrophils % (Auto) 54 % (37-80); Nucleated Red Blood Cell # 0.00 Thou/mm3 (0.00-0.00); Nucleated Red Blood Cell % 0 /100 WBC (0); Platelet Count 329 Thou/mm3 (140-440); RDW Standard Deviation 41.9 fL (35.1-43.9); Red Blood Count 5.57 Miln/mm3 (4.50-5.90); White Blood Count 7.9 Thou/mm3 (3.8-10.6)
[2025-06-19 22:58] LABS: D-Dimer < 250 ng/mL (<600)
[2025-06-19 23:00] LABS: INR 1.0 (0.9-1.3); Partial Thromboplastin Time 25.3 Seconds (22.0-36.0); Prothrombin Time 10.3 Seconds (9.0-12.2)
[2025-06-19 23:02] LABS: B-Type Natriuretic Peptide < 20 pg/mL (0-100)
[2025-06-19 23:06] LABS: Alanine Aminotransferase 58 U/L (10-49); Albumin, Serum 4.6 gm/dL (3.5-5.0); Anion Gap 11 (7-16); Aspartate Amino Transferase 37 U/L (0-34); BUN/Creatinine Ratio 10 Ratio (12-20); Bilirubin,Direct 0.1 mg/dL (0.0-0.3); Bilirubin,Total 0.4 mg/dL (0.3-1.2); Blood Urea Nitrogen 12 mg/dL (9-23); Calcium 9.3 mg/dL (8.3-10.6); Carbon Dioxide 25.9 mMol/L (20.0-31.0); Chloride 106 mMol/L (98-107); Creatine Kinase 164 U/L (34-171); Creatinine (Component) 1.2 mg/dL (0.6-1.3); Estimated Creatinine Clearance 111.7 mL/min (>60); Glucose 88 mg/dL (74-106); Magnesium 2.0 mg/dL (1.6-2.6); Osmolality,Calculated 283 (275-295); Potassium 3.9 mMol/L (3.4-5.1); Sodium 143 mMol/L (136-145); Total Protein 6.9 gm/dL (5.7-8.2); Troponin I < 0.002 ng/mL (0.0-0.045); eGFR > 60 See Note
[2025-06-19 23:07] LABS: Albumin/Globulin Ratio 2.0 (1.2-2.2); Alkaline Phosphatase 59 U/L (46-116); Calcium (Corrected) 9.3 mg/dL (8.5-10.1); Globulin 2.3 gm/dL (2.3-3.5); Thyroid Stimulating Hormone 0.89 uIU/mL (0.55-4.78)
--- NOTE | 2025-06-20 00:01 | XR_ITS ---
Examination: Venous duplex lower extremity sonogram, bilateral. Date and time of exam: June 20, 2025, 0010 hours INDICATIONS: Onset bilateral lower leg pain beginning 3 days ago Technique: Multiple sonographic images of the deep venous system have been obtained. B-mode/2-D grayscale imaging of vascular structures and Doppler spectral analysis (waveforms) and color performed Both legs are examined. Findings: Deep venous systems do not demonstrate abnormal echogenicity. All visualized deep veins exhibit compressibility. All visualized deep veins exhibit augmentation. Impression: Negative for deep vein thrombosis
--- NOTE | 2025-06-20 01:54 | PRELIM_ITS ---
Bilateral lower extremity venous Doppler ultrasound. June 20, 2025 0015 hours Clinical history: Edema, high dimer. Findings: Martinez scale, color flow and spectral Doppler evaluation of the lower extremity deep veins was performed. Right: The common femoral, superficial femoral and popliteal veins are patent and compressible. Normal respiratory variation and augmentation are noted. The great saphenous vein is patent at the level of the saphenofemoral junction. The calf veins to the extent visualized are patent. Left: The common femoral, superficial femoral and popliteal veins are patent and compressible. Normal respiratory variation and augmentation are noted. The great saphenous vein is patent at the level of the saphenofemoral junction. The calf veins to the extent visualized are patent. Impression: No evidence of deep venous thrombosis in both lower extremities. Report Electronically Signed By: Avi Sebastian 06/20/2025 1:53:29 AM [EST]
== END 2025-06-20 01:11 | disposition home or self-care (01) ==
PROVIDERS: Emergency Provider Emergency Medicine
DX: M79.604 Pain in right leg (principal); M79.605 Pain in left leg
CPT/HCPCS: 36415; 71045; 80053; 82248; 82550; 83735; 83880; 84443; 84484; 85025; 85379; 85610; 85730; 93970; 99283